=== PATIENT | female | born 1955 | race Caucasian/White ===

== ENCOUNTER 2021-05-11 08:40 | Outpatient (REF) | payer MEDICARE, SELFPAY ==
[2021-05-11 11:35] LABS: Appearance Urine CLEAR; Color Urine YELLOW; Glucose Urine UA NEG (NEG); Leukocyte Esterase Urine TRACE (NEG); Nitrite Urine NEG (NEG); Specific Gravity - Urine 1.025 (1.005-1.025); Urine Blood NEG (NEG); Urine Ketones NEG (NEG); Urine Protein NEG (NEG-TRACE)
[2021-05-11 11:46] LABS: Bacteria Urine 2+ /LPF; Hematocrit 46.7 % (37.0-47.0); Hemoglobin 15.1 g/dl (12.0-16.0); Mean Corpuscular HGB Conc 32.3 g/dl (31.0-35.0); Mean Corpuscular Hemoglobin 29.8 pg (27.0-33.0); Mean Corpuscular Volume 92.1 fL (80.0-98.0); Mean Platelet Volume 9.6 fL (9.4-12.3); Platelet Count 291 X10*3/uL (160-400); RBC Urine 0-2 /HPF (0); Red Blood Count 5.07 X10*6/uL (4.20-5.50); Squamous Epithelial Cell Urine 1+ /LPF; White Blood Count 9.2 X10*3/uL (4.8-10.8)
[2021-05-11 12:11] LABS: Alanine Aminotransferase 22 U/L (0-31); Albumin Level 4.7 g/dL (3.5-5.0); Alkaline Phosphatase 95 U/L (39-117); Anion Gap 13 (12-20); Aspartate Amino Transferase 21 U/L (5-31); Bilirubin Total 0.3 mg/dL (0.0-1.0); Blood Urea Nitrogen 27 mg/dL (9-16); Calcium 10.4 mg/dL (8.4-10.2); Carbon Dioxide 27 mmol/L (22-29); Chloride 109 mmol/L (96-108); Cholesterol 243 mg/dL; Estimated Glomerular Filt Rate > 60; Glucose Fasting 98 mg/dL (60-99); HDL Cholesterol 51 mg/dL; LDL Cholesterol Calculated 173 mg/dl; Potassium 4.1 mmol/L (3.3-5.1); Sodium 145 mmol/L (135-145); Total Protein 7.3 g/dL (6.5-8.0); Triglycerides 96 mg/dL
[2021-05-11 12:15] LABS: TSH reflex Free T4 3.18 uIU/mL (0.32-4.0)
== END 2021-05-11 08:41 | disposition home or self-care (01) ==
LOC: HO.HMGCLDS 08:40
PROVIDERS: PCP Internal Medicine; Visit Provider Internal Medicine
DX: Z00.00 Encounter for general adult medical examination without abnormal findings (principal); E03.9 Hypothyroidism, unspecified
CPT/HCPCS: 36415; 80053; 80061; 81001; 82306; 84443; 85027

== ENCOUNTER 2021-11-10 09:34 | Outpatient (REF) | payer MEDICARE, SELFPAY ==
[2021-11-10 12:06] LABS: Cholesterol 241 mg/dL; HDL Cholesterol 47 mg/dL; LDL Cholesterol Calculated 173 mg/dl; Triglycerides 109 mg/dL
[2021-11-10 12:09] LABS: TSH reflex Free T4 0.75 uIU/mL (0.32-4.0)
== END 2021-11-10 09:35 | disposition home or self-care (01) ==
LOC: HO.HMGCLDS 09:34
PROVIDERS: PCP Internal Medicine; Visit Provider Internal Medicine
DX: E78.5 Hyperlipidemia, unspecified (principal)
CPT/HCPCS: 36415; 80061; 84443

== ENCOUNTER 2022-10-31 07:51 | Outpatient (REF) | payer MEDICARE, SELFPAY ==
[2022-10-31 11:15] LABS: MANUAL DIFF FLAG NO
[2022-10-31 11:29] LABS: Basophils Absolute Auto 0.1 X10*3/uL (0.0-0.2); Eosinophils Absolute Auto 0.2 X10*3/uL (0.0-0.4); Eosinophils Percent Auto 2.5 % (0-4); Hematocrit 44.5 % (37.0-47.0); Hemoglobin 14.6 g/dl (12.0-16.0); Imm Gran Abs Auto 0.04 X10*3/uL (0.00-0.03); Imm Gran Pct Auto 0.6 % (0.0-0.4); Lymphocytes Absolute Auto 2.2 X10*3/uL (1.2-4.9); Lymphocytes Percent Auto 30.9 % (20-40); Mean Corpuscular HGB Conc 32.8 g/dl (31.0-35.0); Mean Corpuscular Hemoglobin 30.4 pg (27.0-33.0); Mean Corpuscular Volume 92.5 fL (80.0-98.0); Mean Platelet Volume 9.5 fL (9.4-12.3); Monocytes Absolute Auto 0.6 X10*3/uL (0.1-1.2); Monocytes Percent Auto 8.5 % (2-11); Neutrophils Absolute Auto 4.1 x10*3/uL (2.0-8.3); Neutrophils Percent Auto 56.5 % (45-73); Platelet Count 301 X10*3/uL (160-400); Red Blood Count 4.81 X10*6/uL (4.20-5.50); Red Cell Distribution Width 13.9 % (11.0-16.0); White Blood Count 7.2 X10*3/uL (4.8-10.8)
[2022-10-31 12:29] LABS: Alanine Aminotransferase 12 U/L (0-31); Albumin Level 4.3 g/dL (3.5-5.0); Alkaline Phosphatase 90 U/L (39-117); Anion Gap 12 (12-20); Aspartate Amino Transferase 15 U/L (5-31); Bilirubin Total 0.3 mg/dL (0.0-1.0); Blood Urea Nitrogen 23 mg/dL (9-16); Calcium 9.9 mg/dL (8.4-10.2); Carbon Dioxide 27 mmol/L (22-29); Chloride 107 mmol/L (96-108); Cholesterol 224 mg/dL (<200); Estimated Glomerular Filt Rate > 60; Glucose Fasting 94 mg/dL (60-99); HDL Cholesterol 47 mg/dL (>40); LDL Cholesterol Calculated 159 mg/dL (<100); Potassium 4.2 mmol/L (3.3-5.1); Sodium 142 mmol/L (135-145); Triglycerides 94 mg/dL (<150)
[2022-10-31 12:30] LABS: TSH reflex Free T4 1.22 uIU/mL (0.32-4.0); Vitamin D 25-OH Total 83.5 ng/mL (>30)
== END 2022-10-31 07:52 | disposition home or self-care (01) ==
LOC: HO.HMGCLDS 07:51
PROVIDERS: PCP Internal Medicine; Visit Provider Internal Medicine
DX: E55.9 Vitamin D deficiency, unspecified (principal); E03.9 Hypothyroidism, unspecified; E78.5 Hyperlipidemia, unspecified; F17.200 Nicotine dependence, unspecified, uncomplicated
CPT/HCPCS: 36415; 80053; 80061; 82306; 84443; 85025

== ENCOUNTER 2022-11-07 08:35 | Outpatient (AMB) | payer MEDICARE, SELFPAY ==
[2022-11-07 08:42] VITALS: BP 142/82; PULSE 87; O2SAT 98; BMI 26.7
--- NOTE | 2022-11-07 08:42 | MHC.PC.OV ---
Vital Signs 11/07/22 08:42 Height 5 ft 11.5 in Weight 194 lb BMI 26.7 BP 142/82 H Blood Pressure Location Lt brachial Position Sitting Pulse 87 Pulse Source Pulse Oximeter Pulse Oximetry (%) 98 Oxygen Delivery Method Room Air Intake Visit Reasons: 6m follow up hyperlipidemia,hypothyroidism Intake Note: Pt is here today for 6 months follow up visit. Allergies adhesive tape Adverse Reaction (Verified 11/07/22 08:44) Rash Medication List - Last Reconciled 11/07/22 by Taylor Mancilla MD levothyroxine 1 tab daily x6 days, 2 tabs on Monday mometasone 50 mcg/actuation 2 sprays intranasal DAILY PRN Tobacco use date assessed: 11/07/22 Dental Screening Dental Screen Date: 11/07/22 Did you have a dental visit in the last 12 months?: Yes Did you have a dental problem in the last 6 months where you did not have access to dental care?: No Was dental information given to patient?: Patient has dentist HPI 6m follow up hyperlipidemia,hypothyroidism HPI Details Pt presents for hyperlipid, hypothyroid, stable on current medications. [facility] Medical History (Updated 11/07/22 @ 11:20 by Taylor Mancilla MD) Hyperlipidemia Annual physical exam Normal breast exam Hypothyroidism (~05/16/21) Surgical History Hx of unilateral oophorectomy H/O thyroidectomy Hx of colonoscopy Family History Mother CHF (congestive heart failure) Social History Household Members Other:: , no children, Housing: House Patient Tobacco Use Status: Current everyday Tobacco user Cigarettes Per Day: 13 e-Cigarette/Vaping Use: Never Used service: No Current occupational status: retired Cognitive needs: No Hearing needs: No Vision needs: Yes Questionnaire Thrive Questionnaire Date Thrive assessed: 05/11/22 MIR-7 AMB Questionnaire MIR-7 Date MIR - 7 assessed: 05/11/22 Source: Developed by Drs. Severo Rodriguez, Vilma Yeung, Huseyin Hassan and colleagues, with an educational castillo from [employer]. Review of Systems Const All systems reviewed & are unremarkable except as noted in HPI and below Reports no additional complaints Eyes Reports no additional complaints ENT Reports no additional complaints Card Reports no additional complaints Resp Reports no additional complaints GI Reports no additional complaints Reports no additional complaints Physical exam (Primary Care) Vital Signs: Last Vital Signs Pulse 87 11/07/22 08:42 BP 142/82 H 11/07/22 08:42 Pulse Ox 98 11/07/22 08:42 Oxygen Delivery Method Room Air 11/07/22 08:42 BMI result Body Mass Index 26.7 Tobacco/Smoking Status: Tobacco use Status Tobacco use date assessed 11/07/22 11/07/22 08:49 Patient Tobacco Use Status Current everyday Tobacco 11/07/22 08:42 e-Cigarette/Vaping Use Never Used 11/07/22 08:42 Thrive Assessment: Date of Thrive Assessment Date Thrive assessed 05/11/22 11/07/22 08:42 Const General: no acute distress HENMT Head: Yes normal to inspection Mouth: Normal oral and palatal mucosa present Throat: Yes posterior oropharynx normal Eyes General: appearance normal, both eyes and all related structures Neck Neck: Yes supple Resp Effort & Inspection: normal respiratory effort Auscultation: clear to auscultation bilaterally Cardio Rhythm: regular rhythm Heart sounds: S1 normal heart sound present and S2 normal heart sound present GI Inspection: Yes normal to inspection Assessment and Plan Assessment & Plan (1) HTN (hypertension): Code(s): I10 - Essential (primary) hypertension Plan: Start 5 mg of olmesartan, low-sodium diet regular exercise and weight loss discussed with the patient (2) Tobacco dependence: Comment: 1/2 PPD for 20+ yrs, Not interested in quitting Code(s): F17.200 - Nicotine dependence, unspecified, uncomplicated (3) Hyperlipidemia: Comment: Patient declined taking statins, diet controlled Code(s): E78.5 - Hyperlipidemia, unspecified (4) Hypothyroidism: Onset Date: ~05/16/21 Code(s): E03.9 - Hypothyroidism, unspecified Plan: Continue levothyroxine Orders: Orders Basic Metabolic Panel 2 Weeks I10 - Essential (primary) hypertension Medications: New olmesartan 5 mg PO DAILY 30 tabs 2RF nabumetone 750 mg PO BID 30 tabs 0RF baclofen 10 mg PO BEDTIME 20 tabs 0RF Coding Level of Care Code Est Pt Level 4 (68530) Diagnoses HTN (hypertension) I10 Tobacco dependence F17.200 Hyperlipidemia E78.5 Hypothyroidism E03.9
== END 2022-11-07 11:19 | disposition home or self-care (01) ==
PROVIDERS: Visit Provider Internal Medicine
DX: I10 Essential (primary) hypertension (principal); F17.200 Nicotine dependence, unspecified, uncomplicated; E78.5 Hyperlipidemia, unspecified; E03.9 Hypothyroidism, unspecified
CPT/HCPCS: 99214

== ENCOUNTER 2022-11-23 13:17 | Outpatient (REF) | payer MEDICARE, SELFPAY ==
[2022-11-23 17:21] LABS: Anion Gap 16 (12-20); Blood Urea Nitrogen 30 mg/dL (9-16); Calcium 10.2 mg/dL (8.4-10.2); Carbon Dioxide 22 mmol/L (22-29); Chloride 107 mmol/L (96-108); Estimated Glomerular Filt Rate > 60; Glucose Random 103 mg/dL (60-115); Potassium 4.1 mmol/L (3.3-5.1); Sodium 141 mmol/L (135-145)
== END 2022-11-23 13:18 | disposition home or self-care (01) ==
LOC: HO.HMGCLDS 13:17
PROVIDERS: PCP Internal Medicine; Visit Provider Internal Medicine
DX: I10 Essential (primary) hypertension (principal)
CPT/HCPCS: 36415; 80048

== ENCOUNTER 2022-12-19 08:38 | Outpatient (AMB) | payer MEDICARE, SELFPAY ==
--- NOTE | 2022-12-19 08:40 | A.OFFPC_ITS ---
Vital Signs 12/19/22 08:42 Height 5 ft 11.5 in Weight 191 lb BMI 26.3 BP 146/82 H Blood Pressure Location Lt brachial Position Sitting Pulse 80 Pulse Source Pulse Oximeter Pulse Oximetry (%) 97 Oxygen Delivery Method Room Air Intake Visit Reasons: 6 week follow up Intake Note: Pt is here today for 6 weeks follow up visit. Allergies adhesive tape Adverse Reaction (Verified 12/19/22 08:45) Rash olmesartan Adverse Reaction (Verified 12/19/22 09:07) Stomach Upset Medication List - Last Reconciled 12/19/22 by Taylor Mancilla MD azithromycin 250 mg PO DAILY 6 days baclofen 10 mg PO BEDTIME levothyroxine 1 tab daily x6 days, 2 tabs on Monday mometasone 50 mcg/actuation 2 sprays intranasal DAILY PRN nabumetone 750 mg PO BID olmesartan 5 mg PO DAILY Tobacco use date assessed: 11/07/22 HPI 6 week follow up HPI Details Pt c/o nasal congestion and green discharge, facial pain, for 1 week. Patient reports epigastric discomfort since started taking olmesartan. She denies nausea vomiting constipation diarrhea hematochezia melena fever or chills. Patient read on Internet that olmesartan was recalled in the past and it can cause kidney failure. [facility] Medical History Hyperlipidemia Annual physical exam Normal breast exam Hypothyroidism (~05/16/21) Surgical History Hx of unilateral oophorectomy H/O thyroidectomy Hx of colonoscopy Family History Mother CHF (congestive heart failure) Social History Household Members Other:: , no children, Housing: House Patient Tobacco Use Status: Current everyday Tobacco user Cigarettes Per Day: 13 e-Cigarette/Vaping Use: Never Used service: No Current occupational status: retired Cognitive needs: No Hearing needs: No Vision needs: Yes Questionnaire Thrive Questionnaire Date Thrive assessed: 05/11/22 MIR-7 AMB Questionnaire IMR-7 Date MIR - 7 assessed: 05/11/22 Source: Developed by Drs. Severo Rodriguez, Vilma Yeung, Huseyin Hassan and colleagues, with an educational castillo from [employer]. Review of Systems Const All systems reviewed & are unremarkable except as noted in HPI and below Reports no additional complaints Eyes Reports no additional complaints ENT Reports no additional complaints Card Reports no additional complaints Resp Reports no additional complaints GI Reports no additional complaints Reports no additional complaints Physical exam (Primary Care) Vital Signs: Last Vital Signs Pulse 80 12/19/22 08:42 BP 146/82 H 12/19/22 08:42 Pulse Ox 97 12/19/22 08:42 Oxygen Delivery Method Room Air 12/19/22 08:42 BMI result Body Mass Index 26.3 Tobacco/Smoking Status: Tobacco use Status Tobacco use date assessed 11/07/22 12/19/22 08:40 Patient Tobacco Use Status Current everyday Tobacco 12/19/22 08:40 e-Cigarette/Vaping Use Never Used 12/19/22 08:40 Thrive Assessment: Date of Thrive Assessment Date Thrive assessed 05/11/22 12/19/22 08:40 Const General: no acute distress HENMT Head: Yes normal to inspection Ears: TM's normal bilaterally General nose exam: Abnormal mucous membranes and turbinates present erythematous and Nasal discharge present purulent Face and sinus: Yes sinus tenderness Throat: Yes posterior oropharynx normal Eyes General: appearance normal, both eyes and all related structures Neck Neck: Yes no lymphadenopathy and Yes supple Resp Effort & Inspection: normal respiratory effort Auscultation: clear to auscultation bilaterally Cardio Rhythm: regular rhythm Heart sounds: S1 normal heart sound present and S2 normal heart sound present GI Inspection: Yes normal to inspection Assessment and Plan Assessment & Plan (1) HTN (hypertension): Comment: Longstanding, ?white coat, Olmesartan caused stomach upset Code(s): I10 - Essential (primary) hypertension Plan: Change olmesartan to amlodipine 2.5 mg a day. Low-sodium diet regular physical activity discussed with the patient. Follow-up in 2 months for blood pressure check (2) Hyperlipidemia: Comment: Patient declined taking statins, diet controlled Code(s): E78.5 - Hyperlipidemia, unspecified Plan: Continue low-cholesterol diet (3) Sinusitis: Code(s): J32.9 - Chronic sinusitis, unspecified Plan: Z-Wero is prescribed and supportive care discussed with the patient Medications: New azithromycin start on day 2 of therapy 250 mg PO DAILY 6 days 6 tabs 0RF amlodipine 2.5 mg PO DAILY 30 tabs 2RF Discontinued olmesartan Discontinued Reason: Doctor's Order 5 mg PO DAILY 30 tabs 2RF Coding Level of Care Code Est Pt Level 4 (57963) Diagnoses HTN (hypertension) I10 Hyperlipidemia E78.5 Sinusitis J32.9
[2022-12-19 08:42] VITALS: BP 146/82; PULSE 80; O2SAT 97; BMI 26.3
== END 2022-12-19 09:21 | disposition home or self-care (01) ==
PROVIDERS: PCP Internal Medicine; Visit Provider Internal Medicine
DX: I10 Essential (primary) hypertension (principal); E78.5 Hyperlipidemia, unspecified; J32.9 Chronic sinusitis, unspecified
CPT/HCPCS: 99214

== ENCOUNTER 2023-02-20 10:08 | Outpatient (AMB) | payer MEDICARE, SELFPAY ==
[2023-02-20 10:29] VITALS: BP 144/78; PULSE 92; O2SAT 97; BMI 26.3
--- NOTE | 2023-02-20 10:29 | MHC.PC.OV ---
Vital Signs 02/20/23 10:29 Height 5 ft 11.5 in Weight 191 lb BMI 26.3 BP 144/78 H Blood Pressure Location Lt brachial Position Sitting Pulse 92 Pulse Source Pulse Oximeter Pulse Oximetry (%) 97 Oxygen Delivery Method Room Air Intake Visit Reasons: 2 Month follow up Intake Note: Pt is here today for 2 months follow up visit. Allergies adhesive tape Adverse Reaction (Verified 02/20/23 10:30) Rash olmesartan Adverse Reaction (Verified 02/20/23 10:30) Stomach Upset Medication List - Last Reconciled 02/20/23 by Taylor Mancilla MD amlodipine 2.5 mg PO DAILY levothyroxine 1 tab daily x6 days, 2 tabs on Monday mometasone 50 mcg/actuation 2 sprays intranasal DAILY PRN Tobacco use date assessed: 02/20/23 Fall risk assessment: No Falls in past year Last assessed Fall Risk: 02/20/23 Dental Screening Dental Screen Date: 02/20/23 Did you have a dental visit in the last 12 months?: Yes Did you have a dental problem in the last 6 months where you did not have access to dental care?: No Was dental information given to patient?: Patient has dentist HPI 2 Month follow up HPI Details Pt presents for f/u HTN, tolerating Amlodipine. Patient has been following low-cholesterol diet for hyperlipidemia. [facility] Medical History Hyperlipidemia Annual physical exam Normal breast exam Hypothyroidism (~05/16/21) Surgical History Hx of unilateral oophorectomy H/O thyroidectomy Hx of colonoscopy Family History Mother CHF (congestive heart failure) Social History Household Members Other:: , no children, Housing: House Patient Tobacco Use Status: Current everyday Tobacco user Cigarettes Per Day: 13 e-Cigarette/Vaping Use: Never Used service: No Current occupational status: retired Cognitive needs: No Hearing needs: No Vision needs: Yes Questionnaire Thrive Questionnaire Date Thrive assessed: 05/11/22 AUDIT C Alcohol Use Questionnaire (AUDIT-C) 1. How often do you have a drink containing alcohol?: Monthly or less 2. How many drinks containing alcohol do you have on a typical day when you are drinking?: 1 or 2 3. How often do you have six or more drinks on one occasion?: Never Total Score: 1 MIR-7 AMB Questionnaire MIR-7 Date MIR - 7 assessed: 05/11/22 Source: Developed by Drs. Severo Rodriguez, Vilma Yeung, Huseyin Hassan and colleagues, with an educational castillo from [employer]. Review of Systems Const All systems reviewed & are unremarkable except as noted in HPI and below Reports no additional complaints Eyes Reports no additional complaints ENT Reports no additional complaints Card Reports no additional complaints Resp Reports no additional complaints GI Reports no additional complaints Reports no additional complaints Physical exam (Primary Care) Vital Signs: Last Vital Signs Pulse 92 02/20/23 10:29 BP 144/78 H 02/20/23 10:29 Pulse Ox 97 02/20/23 10:29 Oxygen Delivery Method Room Air 02/20/23 10:29 BMI result Body Mass Index 26.3 Tobacco/Smoking Status: Tobacco use Status Tobacco use date assessed 02/20/23 02/20/23 10:36 Patient Tobacco Use Status Current everyday Tobacco 02/20/23 10:36 e-Cigarette/Vaping Use Never Used 02/20/23 10:29 Thrive Assessment: Date of Thrive Assessment Date Thrive assessed 05/11/22 02/20/23 10:29 Const General: no acute distress HENMT Head: Yes normal to inspection Ears: hearing grossly normal bilaterally Neck Neck: Yes supple Resp Effort & Inspection: normal respiratory effort Auscultation: clear to auscultation bilaterally Cardio Rhythm: regular rhythm Heart sounds: S1 normal heart sound present and S2 normal heart sound present GI Inspection: Yes normal to inspection Palpation (GI): Soft to palpation Percussion: Yes normal to percussion Auscultation: normal bowel sounds Assessment and Plan Assessment & Plan (1) HTN (hypertension): Comment: Longstanding, ?white coat, Olmesartan caused stomach upset Code(s): I10 - Essential (primary) hypertension Plan: Continue Amlodipine (2) Hyperlipidemia: Comment: Patient declined taking statins, diet controlled Code(s): E78.5 - Hyperlipidemia, unspecified Plan: Low-cholesterol diet increase physical activity fish oil supplement discussed with the patient (3) Hypothyroidism: Onset Date: ~05/16/21 Code(s): E03.9 - Hypothyroidism, unspecified Plan: Continue levothyroxine Orders: Orders Comprehensive [place]. Panel Fast 3 Months E03.9 - Hypothyroidism, unspecified, E78.5 - Hyperlipidemia, unspecified, I10 - Essential (primary) hypertension TSH reflex Free T4 3 Months E03.9 - Hypothyroidism, unspecified, E78.5 - Hyperlipidemia, unspecified, I10 - Essential (primary) hypertension Complete Blood Count Auto Diff 3 Months E03.9 - Hypothyroidism, unspecified, E78.5 - Hyperlipidemia, unspecified, I10 - Essential (primary) hypertension Lipid Panel 3 Months E03.9 - Hypothyroidism, unspecified, E78.5 - Hyperlipidemia, unspecified, I10 - Essential (primary) hypertension Coding Level of Care Code Est Pt Level 4 (43763) Diagnoses HTN (hypertension) I10 Hyperlipidemia E78.5 Hypothyroidism E03.9
== END 2023-02-20 11:24 | disposition home or self-care (01) ==
PROVIDERS: PCP Internal Medicine; Visit Provider Internal Medicine
DX: I10 Essential (primary) hypertension (principal); E78.5 Hyperlipidemia, unspecified; E03.9 Hypothyroidism, unspecified
CPT/HCPCS: 99214

== ENCOUNTER 2023-04-14 10:55 | Outpatient (AMB) | payer MEDICARE, SELFPAY ==
[2023-04-14 12:19] VITALS: BP 140/80; PULSE 85; TEMP 36.4; O2SAT 98; BMI 26.3
--- NOTE | 2023-04-14 12:19 | AM.OFFWIN_ITS ---
Intake Vital Signs 04/14/23 12:19 Height 5 ft 11.5 in Weight 191 lb BMI 26.3 BP 140/80 H Blood Pressure Location Lt brachial Position Sitting Pulse 85 Pulse Source Pulse Oximeter Temp 97.6 F Temp Source Temporal Artery Scan Pulse Oximetry (%) 98 Oxygen Delivery Method Room Air Intake Visit Reasons: EST/vertigo since monday (lobby) Intake Note: pt is here today for vertigo started monday Patient Tobacco Use Status: Current everyday Tobacco user Allergies adhesive tape Adverse Reaction (Verified 04/14/23 12:20) Rash olmesartan Adverse Reaction (Verified 04/14/23 12:20) Stomach Upset Do you need a note to return to daycare/school/sports/work: No HPI HPI Comments History of Present Illness Details 68 y/o female who presents to walk in [facility] with c/o Vertigo since Monday. [facility] Medical History Hyperlipidemia Annual physical exam Normal breast exam Hypothyroidism (~05/16/21) Surgical History Hx of unilateral oophorectomy H/O thyroidectomy Hx of colonoscopy Family History Mother CHF (congestive heart failure) Social History Household Members Other:: , no children, Housing: House Patient Tobacco Use Status: Current everyday Tobacco user Cigarettes Per Day: 13 e-Cigarette/Vaping Use: Never Used service: No Current occupational status: retired Cognitive needs: No Hearing needs: No Vision needs: Yes Review of Systems Const All systems reviewed & are unremarkable except as noted in HPI and below Physical Exam Vital Signs: Last Vital Signs Temp 97.6 F 04/14/23 12:19 Pulse 85 04/14/23 12:19 BP 140/80 H 04/14/23 12:19 Pulse Ox 98 04/14/23 12:19 Oxygen Delivery Method Room Air 04/14/23 12:19 BMI result Body Mass Index 26.3 Const General: no acute distress Orientation/consciousness: patient oriented x3 Limitations: ambulation with cane HEENT Head: Yes normocephalic Ears: external ears normal and TM's normal bilaterally (Small amount of fluid right ear) General nose exam: Abnormal mucous membranes and turbinates present boggy and erythematous Face and sinus: Yes sinuses nontender Mouth: moist mucous membranes Throat: Yes posterior oropharynx normal Resp Effort & Inspection: normal respiratory effort and able to speak in complete sentences Auscultation: clear to auscultation bilaterally Cardio Rate: regular rate Rhythm: regular rhythm Neuro General: patient oriented x3 Psych Speech and movement: Clear speech present Assessment & Plan Assessment & Plan (1) Dizziness: Code(s): R42 - Dizziness and giddiness Plan: - Take medicine as directed - F/U with PCP Medications: New meclizine 50 mg PO BID 60 tabs 0RF R42 - Dizziness and giddiness prednisone 20 mg PO DAILY 5 days 5 tabs 0RF R42 - Dizziness and giddiness Coding Level of Care Code Est Pt Level 3 (09056) Diagnoses Dizziness R42 Time Spent (min) 15
== END 2023-04-14 16:20 | disposition home or self-care (01) ==
PROVIDERS: PCP Internal Medicine; Visit Provider Nurse Practitioner Family
DX: R42 Dizziness and giddiness (principal)
CPT/HCPCS: 99213

== ENCOUNTER 2023-04-21 11:24 | Outpatient (AMB) | payer MEDICARE, SELFPAY ==
--- NOTE | 2023-04-21 11:31 | A.OFFPC_ITS ---
Vital Signs 04/21/23 11:32 Height 5 ft 11.5 in Weight 194 lb 4 oz BMI 26.7 BP 160/74 H Blood Pressure Location Lt brachial Position Sitting Pulse 96 Pulse Source Pulse Oximeter Pulse Oximetry (%) 100 Oxygen Delivery Method Room Air Intake Visit Reasons: Followup dizziness, ok per Dr Small Intake Note: Pt is here to follow up at being seen at the walk-in for dizziness and nausea and says she has sinus pressure behind her nose and ears plugged Allergies adhesive tape Adverse Reaction (Verified 04/21/23 12:27) Rash olmesartan Adverse Reaction (Verified 04/21/23 12:27) Stomach Upset Medication List - Last Reconciled 04/21/23 by PONCE Araiza amlodipine 2.5 mg PO DAILY amoxicillin-pot clavulanate 875-125 mg 1 tab PO Q12H cholecalciferol (vitamin D3) 50 mcg PO DAILY levothyroxine 1 tab daily x6 days, 2 tabs on Monday meclizine 50 mg PO BID mometasone 50 mcg/actuation 2 sprays intranasal DAILY PRN Tobacco use date assessed: 04/21/23 Fall risk assessment: No Falls in past year Last assessed Fall Risk: 04/21/23 HPI HPI Comments History of Present Illness Details Patient is a 68-year-old female in for a sick visit. Patient was recently seen in the walk-in clinic 7 days prior for symptoms of persistent dizziness. Patient was given prednisone and meclizine. She states that the medication helped for 2-3 days, and that the symptoms have returned. At today's appointment she states she feels pressure in her sinuses hand feels discomfort in the right side of her face into her ear. Patient has a distant history of BP PV. Patient denies vomiting, chest pain, shortness a breath, numbness, vomiting, diarrhea. The patient's blood pressure today is elevated at 160/74. She has history of white coat syndrome, this is elevated above previous in office measurements. Patient is currently taking 2.5 mg amlodipine. Patient will be recommended to take 5 mg amlodipine to continue measuring her blood pressure at home. Patient denied in office BP check in 1 week, states she would like to monitor at home and follow-up with her PCP in 1 month On physical exam the patient is positive on Dottie-Hallpike maneuver. She also has otitis media with effusion of the right ear. Patient will be instructed to continue meclizine, will be given course of Augmentin to be taken as directed. Patient is declining vestibular physical therapy at this time. Patient will follow-up with primary care provider if symptoms do not subside. [facility] Medical History Hyperlipidemia Annual physical exam Normal breast exam Hypothyroidism (~05/16/21) Surgical History Hx of unilateral oophorectomy H/O thyroidectomy Hx of colonoscopy Family History Mother CHF (congestive heart failure) Social History Household Members Other:: , no children, Housing: House Patient Tobacco Use Status: Current everyday Tobacco user Cigarettes Per Day: 13 e-Cigarette/Vaping Use: Never Used service: No Current occupational status: retired Cognitive needs: No Hearing needs: No Vision needs: Yes Questionnaire Thrive Questionnaire Date Thrive assessed: 05/11/22 MIR-7 AMB Questionnaire MIR-7 Date MIR - 7 assessed: 05/11/22 Source: Developed by Drs. Severo Rodriguez, Vilma Yeung, Huseyin Hassan and colleagues, with an educational castillo from [employer]. Review of Systems Const Details: Constitutional : No Weight loss, No fever, Admits Chills, No Fatigue, No Malaise ENT/Mouth : No sore throat, Admits sinus tenderness, Admits right ear pain. Eyes: No Eye Pain, No Swelling, No Redness Cardiovascular : No Chest Pain, No SOB, No Dyspnea on Exertion, No Orthopnea, No Edema, No Palpitations Respiratory : No Cough, No Sputum, No Wheezing Gastrointestinal : No Nausea, No Vomiting, No Diarrhea, No Constipation, No abdominal Pain, No Hematochezia, No Melena Neuro : No Weakness, No Numbness, Admits Dizziness, No Headache All other systems reviewed and are negative Physical exam (Primary Care) Vital Signs: Last Vital Signs Pulse 96 04/21/23 11:32 BP 160/74 H 04/21/23 11:32 Pulse Ox 100 04/21/23 11:32 Oxygen Delivery Method Room Air 04/21/23 11:32 Care Plan Goal for BP management: Patient will take 5 mg amlodipine up from 2.5 mg. Patient will take blood pressure measurements at home. Patient will go back down to 2.5 mg of blood pressures found to be low at home. Next steps: Declined in office BP check in 1 week. BMI result Body Mass Index 26.7 Tobacco/Smoking Status: Tobacco use Status Tobacco use date assessed 04/21/23 04/21/23 11:41 Patient Tobacco Use Status Current everyday Tobacco 04/21/23 11:31 e-Cigarette/Vaping Use Never Used 04/21/23 11:31 Thrive Assessment: Date of Thrive Assessment Date Thrive assessed 05/11/22 04/21/23 11:31 Const Other: Appearance: Alert.? Oriented X3.? No acute distress.? Head: Normocephalic, atraumatic, Eyes: Pupils equal, round and reactive to light.? ENT: Pharynx normal. Left TM intact and pearly lay. Right TM intact with effusion and erythema. ? Neck: Normal inspection.? Neck supple.?Full ROM. CVS: Normal heart rate and rhythm.? Pulses normal.? Respiratory: No respiratory distress.? Breath sounds normal.? Skin: Skin warm and dry.? Normal skin color.? Normal skin turgor.? Neuro: Oriented X 3.? No motor deficit.?EOMI, No sensory deficit. CN 2-12 intact. 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 + Dottie-Hallpike maneuver. Assessment and Plan Assessment & Plan (1) Otitis media of right ear: Comment: Patient will be given Augmentin to be taken as directed. Patient has been educated the side effects of these medications. Code(s): H66.91 - Otitis media, unspecified, right ear Qualifiers: Otitis media type: unspecified Qualified Code(s): H66.91 - Otitis media, unspecified, right ear Plan: Take your medications as prescribed. If you were prescribed antibiotics today, it is important that you take your medication to their entirety, do not skip any doses, do not finish them early. Follow-up with your primary care provider this week. Return to the emergency department with new or worsening symptoms. Such as fevers, chills, chest pain, shortness of breath, nausea, vomiting, dizziness, headache, vision changes, lethargy In case of emergency call 911 (2) HTN (hypertension): Comment: Patient will go from 2.5 mg to 5 mg amlodipine at home. Patient will take blood pressure measurements at home. She does have history of white coat syndrome, also just finished course of prednisone. If blood pressure measurements are low at home patient is instructed to go back to 2.5 mg. Patient states understanding. Code(s): I10 - Essential (primary) hypertension Qualifiers: Hypertension type: unspecified Qualified Code(s): I10 - Essential (primary) hypertension Plan: Patient would like to follow-up with PCP in 1 month. (3) Vertigo: Comment: Positive Dottie-Hallpike maneuver. Patient to take meclizine as directed for symptom relief. Patient has been educated that long-term relief often comes from physical therapy, patient has denied this at this time. Code(s): R42 - Dizziness and giddiness Medications: New amoxicillin-pot clavulanate 875-125 mg 1 tab PO Q12H 14 tabs 0RF Patient Instructions: Follow-up with PCP. Coding Level of Care Code Est Pt Level 3 (55700) Diagnoses Right otitis media, unspecified otitis media type H66.91 Otitis media type: unspecified Hypertension, unspecified type I10 Hypertension type: unspecified Vertigo R42 Time Spent (min) 30
[2023-04-21 11:32] VITALS: BP 160/74; PULSE 96; O2SAT 100; BMI 26.7
== END 2023-04-21 13:06 | disposition home or self-care (01) ==
PROVIDERS: PCP Internal Medicine; Visit Provider Nurse Practitioner Primary Care
DX: H66.91 Otitis media, unspecified, right ear (principal); I10 Essential (primary) hypertension; R42 Dizziness and giddiness
CPT/HCPCS: 99213

== ENCOUNTER 2023-05-12 08:03 | Outpatient (REF) | payer MEDICARE, SELFPAY ==
[2023-05-12 10:41] LABS: MANUAL DIFF FLAG NO
[2023-05-12 10:54] LABS: Basophils Absolute Auto 0.1 X10*3/uL (0.0-0.2); Basophils Percent Auto 0.7 % (0-2); Eosinophils Absolute Auto 0.2 X10*3/uL (0.0-0.4); Eosinophils Percent Auto 1.3 % (0-4); Hematocrit 42.8 % (37.0-47.0); Hemoglobin 14.1 g/dl (12.0-16.0); Imm Gran Abs Auto 0.16 X10*3/uL (0.00-0.03); Imm Gran Pct Auto 1.3 % (0.0-0.4); Lymphocytes Absolute Auto 4.6 X10*3/uL (1.2-4.9); Lymphocytes Percent Auto 38.4 % (20-40); Mean Corpuscular HGB Conc 32.9 g/dl (31.0-35.0); Mean Corpuscular Hemoglobin 29.3 pg (27.0-33.0); Mean Corpuscular Volume 88.8 fL (80.0-98.0); Mean Platelet Volume 9.1 fL (9.4-12.3); Neutrophils Absolute Auto 6.1 x10*3/uL (2.0-8.3); Neutrophils Percent Auto 50.3 % (45-73); Platelet Count 352 X10*3/uL (160-400); Red Blood Count 4.82 X10*6/uL (4.20-5.50); Red Cell Distribution Width 14.2 % (11.0-16.0)
[2023-05-12 11:25] LABS: Alanine Aminotransferase 12 U/L (0-31); Alkaline Phosphatase 91 U/L (39-117); Anion Gap 13 (12-20); Aspartate Amino Transferase 12 U/L (5-31); Bilirubin Total 0.3 mg/dL (0.0-1.0); Blood Urea Nitrogen 33 mg/dL (9-16); Calcium 9.6 mg/dL (8.4-10.2); Carbon Dioxide 27 mmol/L (22-29); Chloride 104 mmol/L (96-108); Cholesterol 205 mg/dL (<200); Estimated Glomerular Filt Rate > 60; Glucose Fasting 80 mg/dL (60-99); HDL Cholesterol 59 mg/dL (>40); LDL Cholesterol Calculated 132 mg/dL (<100); Potassium 3.6 mmol/L (3.3-5.1); Sodium 140 mmol/L (135-145); TSH reflex Free T4 1.98 uIU/mL (0.32-4.0); Total Protein 6.8 g/dL (6.5-8.0); Triglycerides 74 mg/dL (<150)
== END 2023-05-12 08:04 | disposition home or self-care (01) ==
LOC: HO.HMGCLDS 08:03
PROVIDERS: PCP Internal Medicine; Visit Provider Internal Medicine
DX: I10 Essential (primary) hypertension (principal); E78.5 Hyperlipidemia, unspecified; E03.9 Hypothyroidism, unspecified
CPT/HCPCS: 36415; 80053; 80061; 84443; 85025

== ENCOUNTER 2023-05-15 09:04 | Outpatient (AMB) | payer MEDICARE, SELFPAY ==
--- NOTE | 2023-05-15 09:21 | A.OFFPC_ITS ---
Vital Signs 05/15/23 09:23 Height 5 ft 11.5 in Weight 192 lb BMI 26.4 BP 138/78 Blood Pressure Location Rt brachial Position Sitting Pulse 85 Pulse Source Pulse Oximeter Pulse Oximetry (%) 98 Oxygen Delivery Method Room Air Intake Visit Reasons: Follow-up ear infection Intake Note: Pt is here today for a follow up visit on ear infection.Pt states that she is still feeling dizzy out of balance. Allergies adhesive tape Adverse Reaction (Verified 05/15/23 09:25) Rash olmesartan Adverse Reaction (Verified 05/15/23 09:25) Stomach Upset Medication List - Last Reconciled 05/15/23 by Taylor Mancilla MD amlodipine 2.5 mg PO DAILY cholecalciferol (vitamin D3) 50 mcg PO DAILY levothyroxine 1 tab daily x6 days, 2 tabs on Monday meclizine 50 mg PO BID mometasone 50 mcg/actuation 2 sprays intranasal DAILY PRN prednisone 20 mg PO DAILY Tobacco use date assessed: 04/21/23 Fall risk assessment: No Falls in past year Last assessed Fall Risk: 05/15/23 Dental Screening Dental Screen Date: 02/20/23 HPI Follow-up ear infection HPI Details Patient presents complaining of persistent vertigo and feeling of right ear blocked for 1 month. Patient was initially treated with 5 days of prednisone with only temporary relief. She was prescribed Augmentin 2 weeks ago but reports persistent positional vertigo worse when getting up in the morning. Patient denies weakness or numbness in extremities,ausea vomiting change in vision. She denies fever chills but reports nasal congestion and has been using Nasacort with saline nasal spray. Hypertension is controlled on Amlodipne. [facility] Medical History Hyperlipidemia Annual physical exam Normal breast exam Hypothyroidism (~05/16/21) Surgical History Hx of unilateral oophorectomy H/O thyroidectomy Hx of colonoscopy Family History Mother CHF (congestive heart failure) Social History Household Members Other:: , no children, Housing: House Patient Tobacco Use Status: Current everyday Tobacco user Cigarettes Per Day: 13 e-Cigarette/Vaping Use: Never Used service: No Current occupational status: retired Cognitive needs: No Hearing needs: No Vision needs: Yes Questionnaire PHQ-9 Over the last 2 weeks, how often have you been bothered by any of the following problems? 1. Little interest or pleasure in doing things: not at all 2. Feeling down, depressed, or hopeless: not at all 3. Trouble falling or staying asleep, or sleeping too much: several days 4. Feeling tired or having little energy: several days 5. Poor appetite or overeating: several days 6. Feeling bad about yourself - or that you are a failure or have let yourself or your family down: not at all 7. Trouble concentrating on things, such as reading the newspaper or watching television: not at all 8. Moving or speaking so slowly that other people could have noticed. Or the opposite - being so fidgety or restless that you have been moving around a lot more than usual: not at all 9. Thoughts that you would be better off or of hurting yourself in some way: not at all Total score: 3 Depression Screening Interpretation: Negative Depression Screening Done: Yes Source: Developed by Drs. Severo Rodriguez, Vilma Yeung, Huseyin Hassan and colleagues, with an educational castillo from [employer]. Thrive Questionnaire Date Thrive assessed: 05/15/23 I am a: Patient What is your living situation today?: I have a steady place to live Within the past 12 months, did the food you bought not last and you didn't have the money to get more?: Never true Within the past 12 months, did you worry whether your food would run out before you got money to buy more?: Never true Do you have trouble paying for medicines?: No Do you have trouble getting transportation to medical appointments?: No Do you have trouble paying your heating and electricity bill?: No Do you have trouble taking care of your child, family member or friend?: No Do you have trouble with day-to-day activities such as bathing, preparing meals, shopping, managing finances, etc.?: No Are you currently unemployed and looking for a job?: No Are you interested in more education?: No Please select the resources that you would like help with: None Currently or been in a relationship where the following occur: no concerns reported THRIVE Score: 0 MIR-7 AMB Questionnaire MIR-7 Date MIR - 7 assessed: 05/15/23 Feeling nervous, anxious, or on edge: 0 = Not at all Not being able to stop or control worryin = Not at all Worrying too much about different things: 0 = Not at all Trouble relaxin = Not at all Being so restless that it is hard to sit still: 0 = Not at all Becoming easily annoyed or irritable: 0 = Not at all Feeling afraid as if something awful might happen: 0 = Not at all Total MIR-7 score (0-4 normal; 5-9 mild; 10-14 moderate; 15-21 severe): 0 Source: Developed by Drs. Severo Rodriguez, Vilma Yeung, Huseyin Hassan and colleagues, with an educational castillo from [employer]. Review of Systems Const All systems reviewed & are unremarkable except as noted in HPI and below Reports no additional complaints Eyes Reports no additional complaints ENT Reports no additional complaints Card Reports no additional complaints Resp Reports no additional complaints GI Reports no additional complaints Physical exam (Primary Care) Vital Signs: Last Vital Signs Pulse 85 05/15/23 09:23 BP 138/78 05/15/23 09:23 Pulse Ox 98 05/15/23 09:23 Oxygen Delivery Method Room Air 05/15/23 09:23 BMI result Body Mass Index 26.4 Tobacco/Smoking Status: Tobacco use Status Tobacco use date assessed 04/21/23 05/15/23 09:28 Patient Tobacco Use Status Current everyday Tobacco 05/15/23 09:28 e-Cigarette/Vaping Use Never Used 05/15/23 09:28 PHQ-9: PHQ-9 Score PHQ-9: Total score 3 05/15/23 09:28 Depression Screening Interpretation: Negative Thrive Assessment: Date of Thrive Assessment Date Thrive assessed 05/15/23 05/15/23 09:28 Currently or been in a relationship where the following occur: no concerns reported Const General: no acute distress HENMT Head: Yes normal to inspection Ears: hearing grossly normal bilaterally and TM's normal bilaterally General nose exam: Abnormal mucous membranes and turbinates present erythematous Face and sinus: Yes normal facial exam Mouth: Normal oral and palatal mucosa present Throat: Yes posterior oropharynx normal Eyes General: appearance normal, both eyes and all related structures Neck Neck: Yes no lymphadenopathy and Yes supple Resp Effort & Inspection: normal respiratory effort Auscultation: clear to auscultation bilaterally Cardio Rhythm: regular rhythm Heart sounds: S1 normal heart sound present and S2 normal heart sound present Neuro Cranial nerves: Yes CN's II-XII intact bilaterally Gait exam (Neuro): Normal gait present Motor exam (neuro): 5/5 motor strength present throughout Coordination: [id number]-[id number] test normal Romberg Test: Negative Extrem General: Yes no clubbing, cyanosis or edema Assessment and Plan Assessment & Plan (1) Vertigo: Code(s): R42 - Dizziness and giddiness Plan: For persistent benign positional vertigo prednisone taper is prescribed. patient will be referred to vestibular therapy and will follow-up in 10 days (2) HTN (hypertension): Code(s): I10 - Essential (primary) hypertension Qualifiers: Hypertension type: unspecified Qualified Code(s): I10 - Essential (primary) hypertension Plan: Continue amlodipine Medications: New prednisone 3 tabl QD x 3 days, then 2 tabl x 3 day, 1 tabl qd x 3 days 20 mg PO DAILY 18 tabs 0RF Coding Level of Care Code Est Pt Level 3 (18873) Diagnoses Vertigo R42 Hypertension, unspecified type I10 Hypertension type: unspecified
[2023-05-15 09:23] VITALS: BP 138/78; PULSE 85; O2SAT 98; BMI 26.4
== END 2023-05-15 10:13 | disposition home or self-care (01) ==
PROVIDERS: PCP Internal Medicine; Visit Provider Internal Medicine
DX: R42 Dizziness and giddiness (principal); I10 Essential (primary) hypertension
CPT/HCPCS: 99213

== ENCOUNTER 2023-05-24 10:16 | Outpatient (AMB) | payer MEDICARE, SELFPAY ==
[2023-05-24 10:46] VITALS: BP 136/74; PULSE 95; O2SAT 97; BMI 26.4
--- NOTE | 2023-05-24 10:46 | A.OFFPC_ITS ---
Vital Signs 05/24/23 10:46 Height 5 ft 11.5 in Weight 192 lb BMI 26.4 BP 136/74 Blood Pressure Location Lt brachial Position Sitting Pulse 95 Pulse Source Pulse Oximeter Pulse Oximetry (%) 97 Oxygen Delivery Method Room Air Intake Visit Reasons: 3 month fu Intake Note: Adrienne is here today for a for a follow up visit. Allergies adhesive tape Adverse Reaction (Verified 05/24/23 10:46) Rash olmesartan Adverse Reaction (Verified 05/24/23 10:46) Stomach Upset Medication List - Last Reconciled 05/24/23 by Taylor Mancilla MD amlodipine 2.5 mg PO DAILY cholecalciferol (vitamin D3) 50 mcg PO DAILY levothyroxine 1 tab daily x6 days, 2 tabs on Monday meclizine 50 mg PO BID mometasone 50 mcg/actuation 2 sprays intranasal DAILY PRN Tobacco use date assessed: 05/24/23 Dental Screening Dental Screen Date: 02/20/23 HPI 3 month fu HPI Details Patient presents for the follow-up hypertension is controlled on amlodipine. Patient complains of persistent positional vertigo and fullness in both ears with a decreased hearing. She took a course of prednisone twice has been taking antihistamine and using Nasonex without any relief. [facility] Medical History Hyperlipidemia Annual physical exam Normal breast exam Hypothyroidism (~05/16/21) Surgical History Hx of unilateral oophorectomy H/O thyroidectomy Hx of colonoscopy Family History Mother CHF (congestive heart failure) Social History Household Members Other:: , no children, Housing: House Patient Tobacco Use Status: Current everyday Tobacco user Cigarettes Per Day: 13 e-Cigarette/Vaping Use: Never Used service: No Current occupational status: retired Cognitive needs: No Hearing needs: No Vision needs: Yes Questionnaire Thrive Questionnaire Date Thrive assessed: 05/15/23 MIR-7 AMB Questionnaire MIR-7 Date MIR - 7 assessed: 05/15/23 Source: Developed by Drs. Severo Rodriguez, Vilma Yeung, Huseyin Hassan and colleagues, with an educational castillo from [employer]. Review of Systems Const All systems reviewed & are unremarkable except as noted in HPI and below Reports no additional complaints Eyes Reports no additional complaints ENT Reports no additional complaints Card Reports no additional complaints Resp Reports no additional complaints GI Reports no additional complaints Reports no additional complaints Physical exam (Primary Care) Vital Signs: Last Vital Signs Pulse 95 05/24/23 10:46 BP 136/74 05/24/23 10:46 Pulse Ox 97 05/24/23 10:46 Oxygen Delivery Method Room Air 05/24/23 10:46 BMI result Body Mass Index 26.4 Tobacco/Smoking Status: Tobacco use Status Tobacco use date assessed 05/24/23 05/24/23 10:47 Patient Tobacco Use Status Current everyday Tobacco 05/24/23 10:47 e-Cigarette/Vaping Use Never Used 05/24/23 10:47 Thrive Assessment: Date of Thrive Assessment Date Thrive assessed 05/15/23 05/24/23 10:47 Const General: no acute distress HENMT Head: Yes normal to inspection Ears: TM's normal bilaterally and [place] (normal) General nose exam: Normal external nose present and Normal nasal mucous membranes and turbinates present Mouth: Normal oral and palatal mucosa present Eyes General: appearance normal, both eyes and all related structures Neck Neck: Yes no lymphadenopathy and Yes supple Resp Effort & Inspection: normal respiratory effort Auscultation: clear to auscultation bilaterally Cardio Rhythm: regular rhythm Heart sounds: S1 normal heart sound present and S2 normal heart sound present Neuro Cranial nerves: Yes CN's II-XII intact bilaterally Motor exam (neuro): 5/5 motor strength present throughout Coordination: [id number]-[id number] test normal Romberg Test: Negative Assessment and Plan Assessment & Plan (1) Vertigo: Code(s): R42 - Dizziness and giddiness Plan: For persistent positional vertigo with decreased hearing patient will be referred to ENT (2) Vestibulitis of ear: Code(s): H83.09 - Labyrinthitis, unspecified ear (3) Hyperlipidemia: Comment: Patient declined taking statins, diet controlled Code(s): E78.5 - Hyperlipidemia, unspecified Plan: Continue low-cholesterol diet (4) Vitamin D deficiency: Code(s): E55.9 - Vitamin D deficiency, unspecified (5) HTN (hypertension): Code(s): I10 - Essential (primary) hypertension Qualifiers: Hypertension type: unspecified Qualified Code(s): I10 - Essential (primary) hypertension Plan: Continue amlodipine Orders: Orders Comprehensive [place]. Panel Fast 6 Months E55.9 - Vitamin D deficiency, unspecified, E78.5 - Hyperlipidemia, unspecified, I10 - Essential (primary) hypertension Lipid Panel 6 Months E55.9 - Vitamin D deficiency, unspecified, E78.5 - Hyperlipidemia, unspecified, I10 - Essential (primary) hypertension Vitamin D 25-OH Total 6 Months E55.9 - Vitamin D deficiency, unspecified, E78.5 - Hyperlipidemia, unspecified, I10 - Essential (primary) hypertension TSH reflex Free T4 6 Months E55.9 - Vitamin D deficiency, unspecified, E78.5 - Hyperlipidemia, unspecified, I10 - Essential (primary) hypertension Complete Blood Count Auto Diff 6 Months E55.9 - Vitamin D deficiency, unspecified, E78.5 - Hyperlipidemia, unspecified, I10 - Essential (primary) hypertension Referrals Ear/Nose/Throat Referral H83.09 - Labyrinthitis, unspecified ear, R42 - Dizziness and giddiness Medications: Refilled mometasone 50 mcg/actuation administer into each nostril 2 sprays intranasal DAILY PRN 17 grams 5RF nasal congestion Discontinued prednisone 3 tabl QD x 3 days, then 2 tabl x 3 day, 1 tabl qd x 3 days Discontinued Reason: Doctor's Order 20 mg PO DAILY 18 tabs 0RF Coding Level of Care Code Est Pt Level 4 (81354) Diagnoses Vertigo R42 Vestibulitis of ear H83.09 Hyperlipidemia E78.5 Vitamin D deficiency E55.9 Hypertension, unspecified type I10 Hypertension type: unspecified
== END 2023-05-24 11:45 | disposition home or self-care (01) ==
PROVIDERS: PCP Internal Medicine; Visit Provider Internal Medicine
DX: R42 Dizziness and giddiness (principal); H83.09 Labyrinthitis, unspecified ear; E78.5 Hyperlipidemia, unspecified; E55.9 Vitamin D deficiency, unspecified; I10 Essential (primary) hypertension
CPT/HCPCS: 99214

== ENCOUNTER 2023-11-10 07:54 | Outpatient (REF) | payer MEDICARE, SELFPAY ==
[2023-11-10 10:00] LABS: MANUAL DIFF FLAG NO
[2023-11-10 10:12] LABS: Basophils Absolute Auto 0.1 X10*3/uL (0.0-0.2); Basophils Percent Auto 0.7 % (0-2); Eosinophils Absolute Auto 0.2 X10*3/uL (0.0-0.4); Eosinophils Percent Auto 2.8 % (0-4); Hematocrit 42.7 % (37.0-47.0); Hemoglobin 14.1 g/dl (12.0-16.0); Imm Gran Abs Auto 0.04 X10*3/uL (0.00-0.03); Imm Gran Pct Auto 0.6 % (0.0-0.4); Lymphocytes Absolute Auto 2.1 X10*3/uL (1.2-4.9); Lymphocytes Percent Auto 29.6 % (20-40); Mean Corpuscular Hemoglobin 29.7 pg (27.0-33.0); Mean Corpuscular Volume 90.1 fL (80.0-98.0); Mean Platelet Volume 9.4 fL (9.4-12.3); Monocytes Absolute Auto 0.6 X10*3/uL (0.1-1.2); Monocytes Percent Auto 8.5 % (2-11); Neutrophils Absolute Auto 4.2 x10*3/uL (2.0-8.3); Neutrophils Percent Auto 57.8 % (45-73); Platelet Count 280 X10*3/uL (160-400); Red Blood Count 4.74 X10*6/uL (4.20-5.50); Red Cell Distribution Width 14.4 % (11.0-16.0); White Blood Count 7.2 X10*3/uL (4.8-10.8)
[2023-11-10 10:39] LABS: Alanine Aminotransferase 17 U/L (0-31); Albumin Level 4.2 g/dL (3.5-5.0); Alkaline Phosphatase 84 U/L (39-117); Anion Gap 11 (12-20); Aspartate Amino Transferase 17 U/L (5-31); Bilirubin Total 0.4 mg/dL (0.0-1.0); Blood Urea Nitrogen 30 mg/dL (9-16); Calcium 9.6 mg/dL (8.4-10.2); Carbon Dioxide 27 mmol/L (22-29); Chloride 108 mmol/L (96-108); Cholesterol 217 mg/dL (<200); Estimated Glomerular Filt Rate > 60; Glucose Fasting 96 mg/dL (60-99); HDL Cholesterol 45 mg/dL (>40); LDL Cholesterol Calculated 153 mg/dL (<100); Sodium 142 mmol/L (135-145); Triglycerides 97 mg/dL (<150)
[2023-11-10 10:54] LABS: TSH reflex Free T4 1.04 uIU/mL (0.32-4.0); Vitamin D 25-OH Total 74.6 ng/mL (>30)
== END 2023-11-10 07:55 | disposition home or self-care (01) ==
LOC: HO.HMGCLDS 07:54
PROVIDERS: PCP Internal Medicine; Visit Provider Internal Medicine
DX: E78.5 Hyperlipidemia, unspecified (principal); I10 Essential (primary) hypertension; E55.9 Vitamin D deficiency, unspecified
CPT/HCPCS: 36415; 80053; 80061; 82306; 84443; 85025

== ENCOUNTER 2023-11-17 10:30 | Outpatient (AMB) | payer MEDICARE, SELFPAY ==
[2023-11-17 10:35] VITALS: BP 134/80; PULSE 87; O2SAT 98; BMI 26.4
--- NOTE | 2023-11-17 10:35 | A.OFFPC_ITS ---
Vital Signs 11/17/23 10:35 Height 5 ft 11.5 in Weight 192 lb BMI 26.4 BP 134/80 Blood Pressure Location Rt brachial Position Sitting Pulse 87 Pulse Source Pulse Oximeter Pulse Oximetry (%) 98 Oxygen Delivery Method Room Air Intake Visit Reasons: Annual PE Intake Note: Pt is here today for PE. Allergies adhesive tape Adverse Reaction (Verified 11/17/23 10:37) Rash olmesartan Adverse Reaction (Verified 11/17/23 10:37) Stomach Upset Medication List - Last Reconciled 11/17/23 by Taylor Mancilla MD amlodipine 2.5 mg PO DAILY cholecalciferol (vitamin D3) 50 mcg PO DAILY levothyroxine 1 tab daily x6 days, 2 tabs on Monday meclizine 50 mg PO BID mometasone 50 mcg/actuation 2 sprays intranasal DAILY PRN Tobacco use date assessed: 11/17/23 Fall risk assessment: No Falls in past year Last assessed Fall Risk: 11/17/23 Dental Screening Dental Screen Date: 11/17/23 Did you have a dental visit in the last 12 months?: Yes Did you have a dental problem in the last 6 months where you did not have access to dental care?: No Was dental information given to patient?: Patient has dentist HPI Annual PE HPI Details Pt presents for PE. [facility] Medical History Hyperlipidemia Annual physical exam Normal breast exam Hypothyroidism (~05/16/21) Surgical History Hx of unilateral oophorectomy H/O thyroidectomy Hx of colonoscopy Family History Mother CHF (congestive heart failure) Social History Household Members Other:: , no children, Housing: House Patient Tobacco Use Status: Current everyday Tobacco user Cigarettes Per Day: 13 e-Cigarette/Vaping Use: Never Used service: No Current occupational status: retired Cognitive needs: No Hearing needs: No Vision needs: Yes Questionnaire PHQ-9 Over the last 2 weeks, how often have you been bothered by any of the following problems? 1. Little interest or pleasure in doing things: not at all 2. Feeling down, depressed, or hopeless: not at all 3. Trouble falling or staying asleep, or sleeping too much: several days 4. Feeling tired or having little energy: several days 5. Poor appetite or overeating: several days 6. Feeling bad about yourself - or that you are a failure or have let yourself or your family down: not at all 7. Trouble concentrating on things, such as reading the newspaper or watching television: not at all 8. Moving or speaking so slowly that other people could have noticed. Or the opposite - being so fidgety or restless that you have been moving around a lot more than usual: not at all 9. Thoughts that you would be better off or of hurting yourself in some way: not at all Total score: 3 Depression Screening Interpretation: Negative Depression Screening Done: Yes 71042 - PHQ-9 Billing: Yes Source: Developed by Drs. Severo Rodriguez, Vilma Yeung, Huseyin Hassan and colleagues, with an educational castillo from [employer]. Thrive Questionnaire Date Thrive assessed: 11/17/23 I am a: Patient What is your living situation today?: I have a steady place to live Within the past 12 months, did the food you bought not last and you didn't have the money to get more?: Never true Within the past 12 months, did you worry whether your food would run out before you got money to buy more?: Never true Do you have trouble paying for medicines?: No Do you have trouble getting transportation to medical appointments?: No Do you have trouble paying your heating and electricity bill?: No Do you have trouble taking care of your child, family member or friend?: No Do you have trouble with day-to-day activities such as bathing, preparing meals, shopping, managing finances, etc.?: No Are you currently unemployed and looking for a job?: No Are you interested in more education?: No Please select the resources that you would like help with: None Currently or been in a relationship where the following occur: No concerns reported THRIVE Score: 0 AUDIT C Alcohol Use Questionnaire (AUDIT-C) 1. How often do you have a drink containing alcohol?: Monthly or less 2. How many drinks containing alcohol do you have on a typical day when you are drinking?: 1 or 2 3. How often do you have six or more drinks on one occasion?: Never Total Score: 1 MIR-7 AMB Questionnaire MIR-7 Date MIR - 7 assessed: 11/17/23 Feeling nervous, anxious, or on edge: 0 = Not at all Not being able to stop or control worryin = Not at all Worrying too much about different things: 0 = Not at all Trouble relaxin = Not at all Being so restless that it is hard to sit still: 0 = Not at all Becoming easily annoyed or irritable: 0 = Not at all Feeling afraid as if something awful might happen: 0 = Not at all Total MIR-7 score (0-4 normal; 5-9 mild; 10-14 moderate; 15-21 severe): 0 Source: Developed by Drs. Severo Rodriguez, Vilma Yeung, Huseyin Hassan and colleagues, with an educational castillo from [employer]. MIR-7 Assessment Billing MIR-7 Assessment Tool: MIR-7 Assessment 06988 Review of Systems Const All systems reviewed & are unremarkable except as noted in HPI and below Reports no additional complaints Eyes Reports no additional complaints ENT Reports no additional complaints Card Reports no additional complaints Resp Reports no additional complaints GI Reports no additional complaints Reports no additional complaints Physical exam (Primary Care) Vital Signs: Last Vital Signs Pulse 87 11/17/23 10:35 BP 134/80 11/17/23 10:35 Pulse Ox 98 11/17/23 10:35 Oxygen Delivery Method Room Air 11/17/23 10:35 BMI result Body Mass Index 26.4 Tobacco/Smoking Status: Tobacco use Status Tobacco use date assessed 11/17/23 11/17/23 10:40 Patient Tobacco Use Status Current everyday Tobacco 11/17/23 10:40 e-Cigarette/Vaping Use Never Used 11/17/23 10:40 PHQ-9: PHQ-9 Score PHQ-9: Total score 3 11/17/23 10:40 Depression Screening Interpretation: Negative Thrive Assessment: Date of Thrive Assessment Date Thrive assessed 11/17/23 11/17/23 10:40 Currently or been in a relationship where the following occur: No concerns reported Const General: no acute distress HENMT Head: Yes normal to inspection Ears: hearing grossly normal bilaterally Face and sinus: Yes normal facial exam Mouth: Normal oral and palatal mucosa present Throat: Yes posterior oropharynx normal Eyes General: appearance normal, both eyes and all related structures Neck Neck: Yes no lymphadenopathy and Yes supple Resp Effort & Inspection: normal respiratory effort Auscultation: clear to auscultation bilaterally Cardio Rhythm: regular rhythm Heart sounds: S1 normal heart sound present and S2 normal heart sound present GI Inspection: Yes normal to inspection Palpation (GI): Soft to palpation Percussion: Yes normal to percussion Auscultation: normal bowel sounds Coding Level of Care Code Est Pt Prev Care >65y(29419) Diagnoses Annual physical exam Z00.00 Hyperlipidemia E78.5 Vitamin D deficiency E55.9 Hypertension, unspecified type I10 Hypertension type: unspecified Additional Codes MIR-7 Assessment Billing - MIR-7 Assessment Tool: MIR-7 Assessment 59530 ([id number]) Assessment & Plan Assessment & Plan (1) Annual physical exam: Code(s): Z00.00 - Encounter for general adult medical examination without abnormal findings Category: Medical Plan: WELL-BALANCED DIET REGULAR PHYSICAL ACTIVITY DISCUSSED WITH THE PATIENT. SHE WILL SCHEDULE MAMMOGRAM. Tobacco quitting discussed with the patient (2) Hyperlipidemia: Comment: Patient declined taking statins, diet controlled Code(s): E78.5 - Hyperlipidemia, unspecified Category: Medical Plan: Continue low-cholesterol diet regular exercise (3) Vitamin D deficiency: Code(s): E55.9 - Vitamin D deficiency, unspecified Category: Medical Plan: Continue vitamin-D supplement (4) HTN (hypertension): Code(s): I10 - Essential (primary) hypertension Category: Medical Qualifiers: Hypertension type: unspecified Qualified Code(s): I10 - Essential (primary) hypertension Plan: Continue Amlodipine Orders: Orders Comprehensive [place]. Panel Fast 1 Year E55.9 - Vitamin D deficiency, unspecified, E78.5 - Hyperlipidemia, unspecified, I10 - Essential (primary) hypertension, Z00.00 - Encounter for general adult medical examination without abnormal findings Complete Blood Count Auto Diff 1 Year E55.9 - Vitamin D deficiency, unspecified, E78.5 - Hyperlipidemia, unspecified, I10 - Essential (primary) h ypertension, Z00.00 - Encounter for general adult medical examination without abnormal findings Lipid Panel 1 Year E55.9 - Vitamin D deficiency, unspecified, E78.5 - Hyperli pidemia, unspecified, I10 - Essential (primary) hypertension, Z00.00 - Encounter for general adult medical examination without abnormal findings TSH reflex Free T4 1 Year E55.9 - Vitamin D deficiency, unspecified, E78.5 - Hyperlipidemia, unspecified, I10 - Essential (primary) hypertension, Z00.00 - Encounter for general adult medical examination without abnormal findings Medications: Refilled amlodipine 2.5 mg PO DAILY 90 tabs 1RF levothyroxine 1 tab daily x6 days, 2 tabs on Monday 110 tabs 3RF mometasone 50 mcg/actuation administer into each nostril 2 sprays intranasal DAILY PRN 17 grams 5RF nasal congestion
== END 2023-11-17 11:13 | disposition home or self-care (01) ==
PROVIDERS: PCP Internal Medicine; Visit Provider Internal Medicine
DX: Z00.00 Encounter for general adult medical examination without abnormal findings (principal); E78.5 Hyperlipidemia, unspecified; E55.9 Vitamin D deficiency, unspecified; I10 Essential (primary) hypertension

== ENCOUNTER → 2023-11-17 10:30 | Outpatient (BNVA) | payer MEDICARE, SELFPAY | PROVIDERS: PCP Internal Medicine; Visit Provider Internal Medicine | DX: Z00.00 Encounter for general adult medical examination without abnormal findings (principal); E78.5 Hyperlipidemia, unspecified; E55.9 Vitamin D deficiency, unspecified; I10 Essential (primary) hypertension | CPT/HCPCS: 96127; 99397 ==

== ENCOUNTER 2024-02-21 10:13 | Outpatient (AMB) | payer MEDICARE, SELFPAY ==
[2024-02-21 10:15] VITALS: BP 134/78; PULSE 97; O2SAT 98; BMI 26.7
--- NOTE | 2024-02-21 10:15 | A.OFFPC_ITS ---
Vital Signs 02/21/24 10:15 Height 5 ft 11.5 in Weight 194 lb BMI 26.7 BP 134/78 Blood Pressure Location Lt brachial Position Sitting Pulse 97 Pulse Source Pulse Oximeter Pulse Oximetry (%) 98 Oxygen Delivery Method Room Air Intake Visit Reasons: Pre op cataract surgery 03/09/24 Intake Note: Pt is here today for pre op visit. Pt is having cataract surgery on 03/09/[address] Krause. Allergies adhesive tape Adverse Reaction (Verified 02/21/24 10:20) Rash olmesartan Adverse Reaction (Verified 02/21/24 10:20) Stomach Upset Medication List - Last Reconciled 02/21/24 by Taylor Mancilla MD amlodipine 2.5 mg PO BID cholecalciferol (vitamin D3) 50 mcg PO DAILY levothyroxine 1 tab daily x6 days, 2 tabs on Monday meclizine 50 mg PO BID PRN mometasone 50 mcg/actuation 2 sprays intranasal DAILY PRN Tobacco use date assessed: 02/21/24 Fall risk assessment: No Falls in past year Last assessed Fall Risk: 02/21/24 Dental Screening Dental Screen Date: 02/21/24 Did you have a dental visit in the last 12 months?: Yes Did you have a dental problem in the last 6 months where you did not have access to dental care?: No Was dental information given to patient?: Patient has dentist HPI Pre op cataract surgery 03/09/24 HPI Details Patient presents for preop for cataract surgery. hypertension and hypothyroidism are controlled on current medications. [facility], [facility] Medical History Hyperlipidemia Annual physical exam Normal breast exam Hypothyroidism (~05/16/21) Surgical History Hx of unilateral oophorectomy H/O thyroidectomy Hx of colonoscopy Family History Mother CHF (congestive heart failure) Social History Household Members Other:: , no children, Housing: House Patient Tobacco Use Status: Current everyday Tobacco user Cigarettes Per Day: 13 e-Cigarette/Vaping Use: Never Used service: No Current occupational status: retired Cognitive needs: No Hearing needs: No Vision needs: Yes Questionnaire PHQ-9 Over the last 2 weeks, how often have you been bothered by any of the following problems? 1. Little interest or pleasure in doing things: not at all 2. Feeling down, depressed, or hopeless: not at all 3. Trouble falling or staying asleep, or sleeping too much: not at all 4. Feeling tired or having little energy: not at all 5. Poor appetite or overeating: not at all 6. Feeling bad about yourself - or that you are a failure or have let yourself or your family down: not at all 7. Trouble concentrating on things, such as reading the newspaper or watching television: not at all 8. Moving or speaking so slowly that other people could have noticed. Or the opposite - being so fidgety or restless that you have been moving around a lot more than usual: not at all 9. Thoughts that you would be better off or of hurting yourself in some way: not at all Total score: 0 Depression Screening Interpretation: Negative Depression Screening Done: Yes 79658 - PHQ-9 Billing: Yes Source: Developed by Drs. Severo Rodriguez, Vilma Yeung, Huseyin Hassan and colleagues, with an educational castillo from [employer]. Thrive Questionnaire Date Thrive assessed: 02/21/24 I am a: Patient What is your living situation today?: I have a steady place to live Within the past 12 months, did the food you bought not last and you didn't have the money to get more?: Never true Within the past 12 months, did you worry whether your food would run out before you got money to buy more?: Never true Do you have trouble paying for medicines?: No Do you have trouble getting transportation to medical appointments?: No Do you have trouble paying your heating and electricity bill?: No Do you have trouble taking care of your child, family member or friend?: No Do you have trouble with day-to-day activities such as bathing, preparing meals, shopping, managing finances, etc.?: No Are you currently unemployed and looking for a job?: No Are you interested in more education?: No Please select the resources that you would like help with: None Currently or been in a relationship where the following occur: No concerns reported THRIVE Score: 0 AUDIT C Alcohol Use Questionnaire (AUDIT-C) 1. How often do you have a drink containing alcohol?: 2-4 times a month 2. How many drinks containing alcohol do you have on a typical day when you are drinking?: 1 or 2 3. How often do you have six or more drinks on one occasion?: Never Total Score: 2 MIR-7 AMB Questionnaire MIR-7 Date MIR - 7 assessed: 02/21/24 Feeling nervous, anxious, or on edge: 0 = Not at all Not being able to stop or control worryin = Not at all Worrying too much about different things: 0 = Not at all Trouble relaxin = Not at all Being so restless that it is hard to sit still: 0 = Not at all Becoming easily annoyed or irritable: 0 = Not at all Feeling afraid as if something awful might happen: 0 = Not at all Total MIR-7 score (0-4 normal; 5-9 mild; 10-14 moderate; 15-21 severe): 0 Source: Developed by Drs. Severo Rodriguez, Vilma Yeung, Huseyin Hassan and colleagues, with an educational castillo from [employer]. MIR-7 Assessment Billing MIR-7 Assessment Tool: MIR-7 Assessment 57439 Review of Systems Const All systems reviewed & are unremarkable except as noted in HPI and below Eyes Reports no additional complaints Card Reports no additional complaints Resp Reports no additional complaints GI Reports no additional complaints Reports no additional complaints Physical exam (Primary Care) Vital Signs: Last Vital Signs Pulse 97 02/21/24 10:15 BP 134/78 02/21/24 10:15 Pulse Ox 98 02/21/24 10:15 Oxygen Delivery Method Room Air 02/21/24 10:15 BMI result Body Mass Index 26.7 Tobacco/Smoking Status: Tobacco use Status Tobacco use date assessed 02/21/24 02/21/24 10:23 Patient Tobacco Use Status Current everyday Tobacco 02/21/24 10:17 e-Cigarette/Vaping Use Never Used 02/21/24 10:17 PHQ-9: PHQ-9 Score PHQ-9: Total score 0 02/21/24 11:59 Depression Screening Interpretation: Negative Thrive Assessment: Date of Thrive Assessment Date Thrive assessed 02/21/24 02/21/24 10:23 Currently or been in a relationship where the following occur: No concerns reported Const General: no acute distress HENMT Head: Yes normal to inspection Ears: hearing grossly normal bilaterally Mouth: Normal oral and palatal mucosa present Neck Neck: Yes supple Resp Effort & Inspection: normal respiratory effort Auscultation: clear to auscultation bilaterally Cardio Rhythm: regular rhythm Heart sounds: S1 normal heart sound present and S2 normal heart sound present Coding Level of Care Code Est Pt Level 3 (46785) Diagnoses Hypertension, unspecified type I10 Hypertension type: unspecified Cataract H26.9 Additional Codes MIR-7 Assessment Billing - MIR-7 Assessment Tool: MIR-7 Assessment 38017 ([id number]) PHQ-9 - 28487 - PHQ-9 Billing: Yes ([id number]) Assessment & Plan Assessment & Plan (1) HTN (hypertension): Code(s): I10 - Essential (primary) hypertension Category: Medical Qualifiers: Hypertension type: unspecified Qualified Code(s): I10 - Essential (primary) hypertension Plan: Continue current medications (2) Cataract: Code(s): H26.9 - Unspecified cataract Category: Medical Plan: Patient is medically cleared for cataract surgery Medications: Changed From amlodipine 2.5 mg PO DAILY 180 tabs 1RF To amlodipine 2.5 mg PO BID 180 tabs 1RF Taylor Mancilla MD From meclizine 50 mg PO BID 60 tabs 0RF R42 - Dizziness and giddiness To meclizine 50 mg PO BID PRN R42 - Dizziness and giddiness Varsha Mansfield NP Refilled amlodipine 2.5 mg PO DAILY 180 tabs 1RF Taylor Mancilla MD
== END 2024-02-21 10:50 | disposition home or self-care (01) ==
PROVIDERS: PCP Internal Medicine; Visit Provider Internal Medicine
DX: I10 Essential (primary) hypertension (principal); H26.9 Unspecified cataract

== ENCOUNTER → 2024-02-21 10:13 | Outpatient (BNVA) | payer MEDICARE, SELFPAY | PROVIDERS: PCP Internal Medicine; Visit Provider Internal Medicine | DX: Z01.818 Encounter for other preprocedural examination (principal); H26.9 Unspecified cataract; I10 Essential (primary) hypertension; E03.9 Hypothyroidism, unspecified; Z79.899 Other long term (current) drug therapy | CPT/HCPCS: 96127; 99212 ==

== ENCOUNTER 2024-05-28 10:42 | Outpatient (AMB) | payer MEDICARE, SELFPAY ==
--- NOTE | 2024-05-28 10:42 | A.OFFPC_ITS ---
Vital Signs 05/28/24 10:43 Height 5 ft 11.5 in Weight 197 lb BMI 27.1 BP 138/70 Blood Pressure Location Rt brachial Position Sitting Pulse 94 Pulse Source Pulse Oximeter Temp 98.1 F Temp Source Oral Pulse Oximetry (%) 97 Oxygen Delivery Method Room Air Intake Visit Reasons: 4 months f/up- BP check up Intake Note: Pt is here today for 4 months follow up visit on BP. Allergies adhesive tape Adverse Reaction (Verified 05/28/24 10:43) Rash olmesartan Adverse Reaction (Verified 05/28/24 10:43) Stomach Upset Medication List - Last Reconciled 05/28/24 by Taylor Mancilla MD amlodipine 2.5 mg PO BID cholecalciferol (vitamin D3) 50 mcg PO DAILY levothyroxine 1 tab daily x6 days, 2 tabs on Monday meclizine 50 mg PO BID PRN mometasone 50 mcg/actuation 2 sprays intranasal DAILY PRN Tobacco use date assessed: 05/28/24 Dental Screening Dental Screen Date: 02/21/24 HPI 4 months f/up- BP check up HPI Details Pt presents for f/u HTN hypothyroidism and chronic vertigo. Patient increase amlodipine to 2.5 mg twice a day but became very weak and dizzy and has been taking amlodipine only once a day. Patient reports well-controlled blood pressure at home with the readings of 120/70. [facility] Medical History Hyperlipidemia Annual physical exam Normal breast exam Hypothyroidism (~05/16/21) Surgical History Hx of unilateral oophorectomy H/O thyroidectomy Hx of colonoscopy Family History Mother CHF (congestive heart failure) Social History Household Members Other:: , no children, Housing: House Patient Tobacco Use Status: Current everyday Tobacco user Cigarettes Per Day: 13 e-Cigarette/Vaping Use: Never Used service: No Current occupational status: retired Cognitive needs: No Hearing needs: No Vision needs: Yes Questionnaire Thrive Questionnaire Date Thrive assessed: 02/21/24 AUDIT C Alcohol Use Questionnaire (AUDIT-C) 1. How often do you have a drink containing alcohol?: 2-4 times a month 2. How many drinks containing alcohol do you have on a typical day when you are drinking?: 1 or 2 3. How often do you have six or more drinks on one occasion?: Never Total Score: 2 MIR-7 AMB Questionnaire MIR-7 Date MIR - 7 assessed: 02/21/24 Source: Developed by Drs. Severo Rodriguez, Vilma Yeung, Huseyin Hassan and colleagues, with an educational castillo from [employer]. Review of Systems Const All systems reviewed & are unremarkable except as noted in HPI and below ENT Reports no additional complaints Card Reports no additional complaints Resp Reports no additional complaints GI Reports no additional complaints Physical exam (Primary Care) Vital Signs: Last Vital Signs Temp 98.1 F 05/28/24 10:43 Pulse 94 05/28/24 10:43 Pulse Ox 97 05/28/24 10:43 Oxygen Delivery Method Room Air 05/28/24 10:43 BMI result Body Mass Index 27.1 Tobacco/Smoking Status: Tobacco use Status Tobacco use date assessed 05/28/24 05/28/24 10:43 Patient Tobacco Use Status Current everyday Tobacco 05/28/24 10:43 e-Cigarette/Vaping Use Never Used 05/28/24 10:43 Thrive Assessment: Date of Thrive Assessment Date Thrive assessed 02/21/24 05/28/24 10:43 Const General: no acute distress HENMT Head: Yes normal to inspection Mouth: Normal oral and palatal mucosa present Eyes General: appearance normal, both eyes and all related structures Resp Effort & Inspection: normal respiratory effort Auscultation: clear to auscultation bilaterally Cardio Rhythm: regular rhythm Heart sounds: S1 normal heart sound present and S2 normal heart sound present Coding Level of Care Code Est Pt Level 3 (31769) Diagnoses Hyperlipidemia E78.5 Hypertension, unspecified type I10 Hypertension type: unspecified Assessment & Plan Assessment & Plan (1) Hyperlipidemia: Comment: Patient declined taking statins, diet controlled Code(s): E78.5 - Hyperlipidemia, unspecified Category: Medical Plan: Continue low-cholesterol diet regular exercise (2) HTN (hypertension): Code(s): I10 - Essential (primary) hypertension Category: Medical Qualifiers: Hypertension type: unspecified Qualified Code(s): I10 - Essential (primary) hypertension Plan: Continue amlodipine 2.5 mg daily patient declined increasing the dose of amlodipine. She will continue to monitor her blood pressure at home Orders: Orders Lipid Panel 1 Month E78.5 - Hyperlipidemia, unspecified, I10 - Essential (primary) hypertension Comprehensive [place]. Panel Fast 1 Month E78.5 - Hyperlipidemia, unspecified, I10 - Essential (primary) hypertension Medications: Refilled amlodipine 2.5 mg PO BID 180 tabs 1RF amlodipine 2.5 mg PO BID 180 tabs 1RF
[2024-05-28 10:43] VITALS: BP 138/70; PULSE 94; TEMP 36.7; O2SAT 97; BMI 27.1
--- OUTSIDE RECORDS SUMMARY | 2024-05-28 12:56 | XMS_ITS | Clinical Summary ---
Author Organization [facility] [address] [facility] Address [address] [place] [address] Phone Care Team Providers Care Cask Maker Name Role Phone Juancho Fan NP Primary Care Provider [phone] Encounters Date Type Department Care Team Description 05/17/2024 10:06 AM EDT - 05/17/2024 11:59 PM EDT Hospital Encounter [facility] CT Scan [address] [place] [address] Encounter for screening for malignant neoplasm of respiratory organs; Nicotine dependence, cigarettes, uncomplicated Discharge Disposition: Home or Self Care 04/11/2024 Telephone Lung Screening Program - [address] [place] [phone] Becky Yeung [place] Appointment (1st Notification) from Last 3 Months Surgical History Surgery Date Site/Laterality Comments OTHER SURGICAL HISTORY PROCEDURE: OR THYROIDECTOMY TOTAL/COMPLETE; COMMENT: Per PCP Note H/O COLONOSCOPY N/A PROCEDURE: HISTORICAL COLONOSCOPY; COMMENT: Per pcpc history of Colonoscopy OOPHORECTOMY PROCEDURE: OR OOPHORECTOMY PARTIAL/TOTAL UNI/BI; COMMENT: Per PCP Notes history of Medical History Medical History Date Comments Mixed hyperlipidemia DX:Mixed hy perlipidemia Hypothyroidism 05/16/2021 DX:Hypothyroidis m Normal breast exam DX:Normal trae ast exam Family History Medical History Relation Name Comments Heart failure Mother Relation Name Status Comments Mother Social History Tobacco Use Types Packs/Day Years Used Date Smoking Tobacco: Every Day Cigarettes 0.5 50.3 Started: [birth year]/13/1974 Comments Unknown Sex and Gender Information Value Date Recorded Sex Assigned at Female 05/17/2024 10:05 AM EDT Legal Sex Female 11:51 PM EST Gender Identity Female 05/17/2024 10:05 AM EDT Sexual Orientation Not on file Obstetrics History Plan of Treatment Health Maintenance Due Date Last Done Comments Breast Cancer Screening 1955 DTaP,Tdap,and Td Vaccines (1 - Tdap) 1974 Colorectal Cancer Screening: Colonoscopy 01/16/2022 Depression Screening 01/16/2022 Falls Risk Assessment 01/16/2022 Hepatitis C Screening 01/16/2022 Medicare Annual Wellness Visit 01/16/2022 Osteoporosis Screening (Bone Density Screening) 01/16/2022 Social Influencers of Health Screening 01/16/2022 COVID-19 Vaccine (3 - 2023-2 5 season) 2023 07/06/2020, 06/08/2020 RSV Immunization Adult Patients (1 - 1-dose 75+ series) 2030 Zoster Vaccines Completed 03/03/2020, 12/06/2019 Pneumococcal Vaccine: 50+ Years Completed 12/02/2021 Influenza Vaccine Completed 02/12/2024, 01/06/2023, 01/18/2021 HIB Vaccines Aged Out No longer eligi ble based on patient's age to complete this topic HPV Vaccines Aged Out No longer eligi ble based on patient's age to complete this topic Hepatitis A Vaccines Aged Out No long er eligible based on patient's age to complete this topic Hepatitis B Vaccines Aged Out No long er eligible based on patient's age to complete this topic IPV Vaccines Aged Out No longer eligi ble based on patient's age to complete this topic MMR Vaccines Aged Out No longer eligi ble based on patient's age to complete this topic Meningococcal ACWY Vaccine Aged Out N o longer eligible based on patient's age to complete this topic Meningococcal B Vaccine Aged Out No l onger eligible based on patient's age to complete this topic RSV Immunization Patients Under 20 months Aged Out No longer eligible b ased on patient's age to complete this topic Varicella Vaccines Aged Out No longer eligible based on patient's age to complete this topic Procedures Procedure Name Priority Date/Time Associated Diagnosis Comments CT LUNG SCREENING Routine 05/17/2024 10: 16 AM EDT Encounter for screening for malignant neoplasm of respiratory organs Nicotine dependence, cigarettes, uncomplicated from Last 3 Months Results * CT Lung Screening (05/17/2024 10:16 AM EDT) Anatomical Region Laterality Modality Chest Computed Tomogra phy 05/21/2024 2:48 PM EDT Impressions 05/21/2024 3:00 PM EDT No suspicious mass or nodule. ??No suspicious interval change. ??Stable left upper lobe nodule measuring 0.6 cm in greatest diameter. ?? LUNG RADS: Lung-RADS 2: BENIGN S Modifier (Significant or Potentially Significant Findings): None present No suspicious nonpulmonary findings. RECOMMENDATIONS: 12 month screening low dose CT -------- FINAL REPORT -------- Dictated By: Dc Bartlett Dictated Date: 05/21/2024 14:48 ET Assigned Physician: Dc Bartlett Reviewed and Electronically Signed By: Dc Bartlett Signed Date: 05/21/2024 15:00 ET Workstation ID: [id number] Transcribed By: Self Edit Transcribed Date: 05/21/2024 14:48 ET Narrative 05/21/2024 3:00 PM EDT EXAMINATION: CT CHEST WITHOUT CONTRAST LUNG CANCER SCREENING, LOW DOSE CLINICAL INFORMATION: Lung cancer screening. ??Current smoker COMPARISON: Portions of previous 04/28/23 ?? TECHNIQUE: Multidetector CT. Examination of the chest. Examination of the chest without IV contrast. Reformatting in the coronal and sagittal planes. Device: [email or web address] VCT DLP: 174 mGy-cm CTDI: 4.83 Dose optimization was performed including the use of low-dose iterative reconstruction technique with automatic exposure control based on patient size. Type of contrast: None Volume of IV contrast: None Volume of contrast discarded: 0 mL FINDINGS: LUNG: No abnormality of the trachea or mainstem bronchi. No focal pneumonia. ?? LUNG NODULES: Oval solid nodule lateral aspect left upper lobe-long axis 05/17/24-0.6 cm () 04/28/23-0.6 cm 04/15/22-0.6 cm OTHER PULMONARY: ??There are a few small areas of inspissated material within small airways. ??No honeycomb formation MEDIASTINUM: ??There are no enlarged mediastinal or hilar lymph nodes. No suspicious abnormalities of the esophagus. ??Small calcified nodule right lobe thyroid appears unchanged. CARDIAC: The heart is not enlarged. No pericardial fluid or thickening ?? There are mild coronary calcifications. VASCULAR: There is no thoracic aortic aneurysm. The main pulmonary artery is normal caliber ?? PLEURA: There is no pleural fluid or pneumothorax ?? AXILLA/CHEST WALL: There are no enlarged axillary lymph nodes. No chest wall mass demonstrated ?? VISUALIZED UPPER ABDOMEN: ??No suspicious abnormality on limited assessment of the visualized upper abdomen. ??Unchanged 7 mm nonobstructing calculus upper pole left kidney 9.8 cm from the skin MUSCULOSKELETAL: No suspicious focal bony lesion demonstrated. Procedure Note Dc Bartlett MD - 05/21/2024 EXAMINATION: CT CHEST WITHOUT CONTRAST LUNG CANCER SCREENING, LOW DOSE CLINICAL INFORMATION: Lung cancer screening. Current smoker COMPARISON: Portions of previous 04/28/23 TECHNIQUE: Multidetector CT. Examination of the chest. Examination of the chest without IV contrast. Reformatting in the coronal and sagittal planes. Device: [email or web address] VCT DLP: 174 mGy-cm CTDI: 4.83 Dose optimization was performed including the use of low-dose iterativereconstruction technique with automatic exposure control based on patientsize. Type of contrast: None Volume of IV contrast: None Volume of contrast discarded: 0 mL FINDINGS: LUNG: No abnormality of the trachea or mainstem bronchi. No focalpneumonia. LUNG NODULES: Oval solid nodule lateral aspect left upper lobe-long axis 05/17/24-0.6 cm () 04/28/23-0.6 cm 04/15/22-0.6 cm OTHER PULMONARY: There are a few small areas of inspissated materialwithin small airways. No honeycomb formation MEDIASTINUM: There are no enlarged mediastinal or hilar lymph nodes. Nosuspicious abnormalities of the esophagus. Small calcified nodule rightlobe thyroid appears unchanged. CARDIAC: The heart is not enlarged. No pericardial fluid or thickening There are mild coronary calcifications. VASCULAR: There is no thoracic aortic aneurysm. The main pulmonary arteryis normal caliber PLEURA: There is no pleural fluid or pneumothorax AXILLA/CHEST WALL: There are no enlarged axillary lymph nodes. No chestwall mass demonstrated VISUALIZED UPPER ABDOMEN: No suspicious abnormality on limited assessmentof the visualized upper abdomen. Unchanged 7 mm nonobstructing calculusupper pole left kidney 9.8 cm from the skin MUSCULOSKELETAL: No suspicious focal bony lesion demonstrated. IMPRESSION: No suspicious mass or nodule. No suspicious interval change. Stable leftupper lobe nodule measuring 0.6 cm in greatest diameter. LUNG RADS: Lung-RADS 2: BENIGN S Modifier (Significant or Potentially Significant Findings): Nonepresent No suspicious nonpulmonary findings. RECOMMENDATIONS: 12 month screening low dose CT -------- FINAL REPORT -------- Dictated By: Dc Bartlett Dictated Date: 05/21/2024 14:48 ET Assigned Physician: Dc Bartlett Reviewed and Electronically Signed By: Dc Bartlett Signed Date: 05/21/2024 15:00 ET Workstation ID: [id number] Transcribed By: Self Edit Transcribed Date: 05/21/2024 14:48 ET Dk Dumont MD IMG CT PROCEDURES Final Result from Last 3 Months Insurance BLUE CROSS - [place] MEDICARE ADVANTAGE Care Teams Cask Maker Relationship Specialty Start Date End Date Juancho Fan NP [address] [facility] [address] [place] [address] PCP - General 11/11/10
== END 2024-05-28 11:33 | disposition home or self-care (01) ==
LOC: HO.HMCC 10:42
PROVIDERS: PCP Internal Medicine; Visit Provider Internal Medicine
DX: E78.5 Hyperlipidemia, unspecified (principal); I10 Essential (primary) hypertension

== ENCOUNTER → 2024-05-28 10:42 | Outpatient (BNVA) | payer MEDICARE, SELFPAY | PROVIDERS: PCP Internal Medicine; Visit Provider Internal Medicine | DX: I10 Essential (primary) hypertension (principal); E03.9 Hypothyroidism, unspecified; R42 Dizziness and giddiness; E78.5 Hyperlipidemia, unspecified; Z79.899 Other long term (current) drug therapy | CPT/HCPCS: 99212 ==

== ENCOUNTER 2024-07-16 07:39 | Outpatient (REF) | payer MEDICARE, SELFPAY ==
--- OUTSIDE RECORDS SUMMARY | 2024-07-16 07:42 | XMS_ITS | Clinical Summary ---
Author Organization [facility] [address] [facility] Address [address] [place] [address] Phone Care Team Providers Care Gas Mask Inspector Name Role Phone Juancho Fan NP Primary Care Provider [phone] Encounters Date Type Department Care Team Description 05/17/2024 10:06 AM EDT - 05/17/2024 11:59 PM EDT Hospital Encounter [facility] CT Scan [address] [place] [phone] Encounter for screening for malignant neoplasm of respiratory organs; Nicotine dependence, cigarettes, uncomplicated Discharge Disposition: Home or Self Care from Last 3 Months Surgical History Surgery Date Site/Laterality Comments OTHER SURGICAL HISTORY PROCEDURE: AL THYROIDECTOMY TOTAL/COMPLETE; COMMENT: Per PCP Note H/O COLONOSCOPY N/A PROCEDURE: HISTORICAL COLONOSCOPY; COMMENT: Per pcpc history of Colonoscopy OOPHORECTOMY PROCEDURE: AL OOPHORECTOMY PARTIAL/TOTAL UNI/BI; COMMENT: Per PCP Notes history of Medical History Medical History Date Comments Mixed hyperlipidemia DX:Mixed hy perlipidemia Hypothyroidism 05/16/2021 DX:Hypothyroidis m Normal breast exam DX:Normal trae ast exam Family History Medical History Relation Name Comments Heart failure Mother Relation Name Status Comments Mother Social History Tobacco Use Types Packs/Day Years Used Date Smoking Tobacco: Every Day Cigarettes 0.5 50.4 Started: 02/13/1974 Comments Unknown Sex and Gender [...] Signed Date: 05/21/2024 15:00 ET Workstation ID: [id number] Transcribed By: Self Edit Transcribed Date: 05/21/2024 14:48 ET Narrative 05/21/2024 3:00 PM EDT EXAMINATION: CT CHEST WITHOUT CONTRAST LUNG CANCER SCREENING, LOW DOSE CLINICAL INFORMATION: Lung cancer screening. ??Current smoker COMPARISON: Portions of previous 04/28/23 ?? TECHNIQUE: Multidetector CT. Examination of the chest. Examination of the chest without IV contrast. Reformatting in the coronal and sagittal planes. Device: [employer]GC VCT DLP: 174 mGy-cm CTDI: 4.83 Dose [...] in the coronal and sagittal planes. Device: AGC VCT DLP: 174 mGy-cm CTDI: 4.83 Dose [...] Signed Date: 05/21/2024 15:00 ET Workstation ID: [id number] Transcribed By: Self Edit Transcribed Date: 05/21/2024 14:48 ET us Dk Dumont MD IM CT PROCEDURES Final Result from Last 3 Months Insurance BL[place] - [place] MEDICARE ADVANTAGE Care Teams Gas Mask Inspector Relationship Specialty Start Date End Date Juancho Fan NP [address] [facility] [address] [place] [address] PCP - General 11/11/10
[2024-07-16 11:16] LABS: Alanine Aminotransferase 16 U/L (0-31); Albumin Level 4.2 g/dL (3.5-5.0); Alkaline Phosphatase 86 U/L (39-117); Anion Gap 10 (12-20); Aspartate Amino Transferase 22 U/L (5-31); Bilirubin Total 0.3 mg/dL (0.0-1.0); Blood Urea Nitrogen 31 mg/dL (9-16); Calcium 9.6 mg/dL (8.4-10.2); Carbon Dioxide 27 mmol/L (22-29); Chloride 110 mmol/L (96-108); Cholesterol 217 mg/dL (<200); Estimated Glomerular Filt Rate > 60; Glucose Fasting 95 mg/dL (60-99); HDL Cholesterol 38 mg/dL (>40); LDL Cholesterol Calculated 162 mg/dL (<100); Potassium 3.8 mmol/L (3.3-5.1); Sodium 143 mmol/L (135-145); Total Protein 6.8 g/dL (6.5-8.0); Triglycerides 88 mg/dL (<150)
== END 2024-07-16 07:40 | disposition home or self-care (01) ==
LOC: HO.HMGCLDS 07:39
PROVIDERS: PCP Internal Medicine; Visit Provider Internal Medicine
DX: I10 Essential (primary) hypertension (principal); E78.5 Hyperlipidemia, unspecified
CPT/HCPCS: 36415; 80053; 80061

== ENCOUNTER 2024-08-02 09:56 | Outpatient (AMB) | payer MEDICARE, SELFPAY ==
[2024-08-02 09:58] VITALS: BP 136/74; PULSE 89; RESP 18; TEMP 36.7; O2SAT 98; BMI 27.1
--- NOTE | 2024-08-02 09:58 | MHC.PC.OV ---
Vital Signs 08/02/24 09:58 Height 5 ft 11.5 in Weight 197 lb BMI 27.1 BP 136/74 Blood Pressure Location Lt brachial Position Sitting Respiration 18 Pulse 89 Pulse Source Pulse Oximeter Temp 98.1 F Temp Source Oral Pulse Oximetry (%) 98 Oxygen Delivery Method Room Air Intake Visit Reasons: f/u Intake Note: Pt is here today for a follow up visit. Allergies adhesive tape Adverse Reaction (Verified 08/02/24 09:59) Rash olmesartan Adverse Reaction (Verified 08/02/24 09:59) Stomach Upset Medication List - Last Reconciled 08/02/24 by Taylor Mancilla MD amlodipine 2.5 mg PO BID cholecalciferol (vitamin D3) 50 mcg PO DAILY levothyroxine 1 tab daily x6 days, 2 tabs on Monday meclizine 50 mg PO BID PRN mometasone 50 mcg/actuation 2 sprays intranasal DAILY PRN Tobacco use date assessed: 08/02/24 Dental Screening Dental Screen Date: 02/21/24 HPI f/u HPI Details Patient presents for the follow-up on hypertension and hyperlipidemia PFSH Medical History Hyperlipidemia Annual physical exam Normal breast exam Hypothyroidism (~05/16/21) Surgical History Hx of unilateral oophorectomy H/O thyroidectomy Hx of colonoscopy Family History Mother CHF (congestive heart failure) Social History Household Members Other:: , no children, Housing: House Patient Tobacco Use Status: Current everyday Tobacco user Cigarettes Per Day: 13 e-Cigarette/Vaping Use: Never Used service: No Current occupational status: retired Cognitive needs: No Hearing needs: No Vision needs: Yes Questionnaire Thrive Questionnaire Date Thrive assessed: 02/21/24 I am a: Patient What is your living situation today?: I have a steady place to live Within the past 12 months, did the food you bought not last and you didn't have the money to get more?: Never true Within the past 12 months, did you worry whether your food would run out before you got money to buy more?: Never true Do you have trouble paying for medicines?: No Do you have trouble getting transportation to medical appointments?: No Do you have trouble paying your heating and electricity bill?: No Do you have trouble taking care of your child, family member or friend?: No Do you have trouble with day-to-day activities such as bathing, preparing meals, shopping, managing finances, etc.?: No Are you currently unemployed and looking for a job?: No Are you interested in more education?: No Please select the resources that you would like help with: None Currently or been in a relationship where the following occur: No concerns reported THRIVE Score: 0 MIR-7 AMB Questionnaire MIR-7 Date MIR - 7 assessed: 02/21/24 Source: Developed by Drs. Severo Rodriguez, Vilma Yeung, Huseyin Hassan and colleagues, with an educational castillo from [employer]. Review of Systems Const All systems reviewed & are unremarkable except as noted in HPI and below Eyes Reports no additional complaints ENT Reports no additional complaints Card Reports no additional complaints Resp Reports no additional complaints GI Reports no additional complaints Reports no additional complaints Physical exam (Primary Care) Vital Signs: Last Vital Signs Temp 98.1 F 08/02/24 09:58 Pulse 89 08/02/24 09:58 Resp 18 08/02/24 09:58 BP 136/74 08/02/24 09:58 Pulse Ox 98 08/02/24 09:58 Oxygen Delivery Method Room Air 08/02/24 09:58 BMI result Body Mass Index 27.1 Tobacco/Smoking Status: Tobacco use Status Tobacco use date assessed 08/02/24 08/02/24 09:59 Patient Tobacco Use Status Current everyday Tobacco 08/02/24 09:58 e-Cigarette/Vaping Use Never Used 08/02/24 09:58 Thrive Assessment: Date of Thrive Assessment Date Thrive assessed 02/21/24 08/02/24 09:58 Currently or been in a relationship where the following occur: No concerns reported Const General: no acute distress HENMT Head: Yes normal to inspection Ears: hearing grossly normal bilaterally Throat: Yes posterior oropharynx normal Neck Neck: Yes no lymphadenopathy and Yes supple Resp Effort & Inspection: normal respiratory effort Auscultation: clear to auscultation bilaterally Cardio Rhythm: regular rhythm Heart sounds: S1 normal heart sound present and S2 normal heart sound present GI Inspection: Yes normal to inspection Palpation (GI): Soft to palpation Percussion: Yes normal to percussion Auscultation: normal bowel sounds Coding Level of Care Code Est Pt Level 4 (86094) Diagnoses Hypothyroidism E03.9 Hyperlipidemia E78.5 Hypertension, unspecified type I10 Hypertension type: unspecified Assessment & Plan Assessment & Plan (1) Hypothyroidism: Onset Date: ~05/16/21 Code(s): E03.9 - Hypothyroidism, unspecified Category: Medical Plan: Continue levothyroxine (2) Hyperlipidemia: Comment: Patient declined taking statins, diet controlled Code(s): E78.5 - Hyperlipidemia, unspecified Category: Medical Plan: Continue low-cholesterol diet regular exercise patient declined taking medications (3) HTN (hypertension): Code(s): I10 - Essential (primary) hypertension Category: Medical Qualifiers: Hypertension type: unspecified Qualified Code(s): I10 - Essential (primary) hypertension Plan: Continue amlodipine Orders: Orders Lipid Panel 4 Months E03.9 - Hypothyroidism, unspecified, E78.5 - Hyperlipidemia, unspecified, I10 - Essential (primary) hypertension TSH reflex Free T4 4 Months E03.9 - Hypothyroidism, unspecified, E78.5 - Hyperlipidemia, unspecified, I10 - Essential (primary) hypertension Complete Blood Count Auto Diff 4 Months E03.9 - Hypothyroidism, unspecified, E78.5 - Hyperlipidemia, unspecified, I10 - Essential (primary) hypertension Comprehensive [place]. Panel Fast 4 Months E03.9 - Hypothyroidism, unspecified, E78.5 - Hyperlipidemia, unspecified, I10 - Essential (primary) hypertension
--- OUTSIDE RECORDS SUMMARY | 2024-08-02 10:13 | XMS_ITS | Clinical Summary ---
Author Organization [facility] [address] [facility] Address [address] [place] [address] Phone Care Team Providers Care Cell Tender Name Role Phone Juancho Fan NP Primary Care Provider [phone] Encounters Date Type Department Care Team Description 05/17/2024 10:06 AM EDT - 05/17/2024 11:59 PM EDT Hospital Encounter [facility] CT Scan [address] [place] [id number] Encounter for screening for malignant neoplasm of respiratory organs; Nicotine dependence, cigarettes, uncomplicated Discharge Disposition: Home or Self Care from Last 3 Months Surgical History Surgery Date Site/Laterality Comments OTHER SURGICAL HISTORY PROCEDURE: [place] THYROIDECTOMY TOTAL/COMPLETE; COMMENT: Per PCP Note H/O COLONOSCOPY N/A PROCEDURE: HISTORICAL COLONOSCOPY; COMMENT: Per pcpc history of Colonoscopy OOPHORECTOMY PROCEDURE: [place] OOPHORECTOMY PARTIAL/TOTAL UNI/BI; COMMENT: Per PCP Notes history of Medical History Medical History Date Comments Mixed hyperlipidemia DX:Mixed hy perlipidemia Hypothyroidism 05/16/2021 DX:Hypothyroidis m Normal breast exam DX:Normal trae ast exam Family History Medical History Relation Name Comments Heart failure Mother Relation Name Status Comments Mother Social History Tobacco Use Types Packs/Day Years Used Date Smoking Tobacco: Every Day Cigarettes 0.5 50.5 Started: [birth year]/13/1974 Comments Unknown Sex and Gender [...] PM EDT No suspicious mass or nodule. No suspicious interval change. Stable left upper lobe nodule measuring 0.6 cm [...] Signed Date: 05/21/2024 15:00 ET Workstation ID: [id number] Transcribed By: Self Edit Transcribed Date: 05/21/2024 14:48 ET Narrative 05/21/2024 3:00 PM EDT EXAMINATION: CT CHEST WITHOUT CONTRAST LUNG CANCER SCREENING, LOW DOSE CLINICAL INFORMATION: Lung cancer screening. Current smoker COMPARISON: Portions of previous 04/28/23 TECHNIQUE: Multidetector CT. Examination of the chest. Examination of the chest without IV contrast. Reformatting in the coronal and sagittal planes. Device: [employer] VCT DLP: 174 mGy-cm CTDI: 4.83 Dose optimization was performed including the use of low-dose iterative reconstruction technique with automatic exposure control based on patient size. Type of contrast: None Volume of IV contrast: None Volume of contrast discarded: 0 mL FINDINGS: LUNG: No abnormality of the trachea or mainstem bronchi. No focal pneumonia. LUNG NODULES: Oval solid nodule lateral aspect left upper lobe-long axis 05/17/24-0.6 cm () 04/28/23-0.6 cm 04/15/22-0.6 cm OTHER PULMONARY: There are a few small areas of inspissated material within small airways. No honeycomb formation MEDIASTINUM: There are no enlarged mediastinal or hilar lymph nodes. No suspicious abnormalities of the esophagus. Small calcified nodule right lobe thyroid appears unchanged. CARDIAC: The heart is not enlarged. No pericardial fluid or thickening There are mild coronary calcifications. VASCULAR: There is no thoracic aortic aneurysm. The main pulmonary artery is normal caliber PLEURA: There is no pleural fluid or pneumothorax AXILLA/CHEST WALL: There are no enlarged axillary lymph nodes. No chest wall mass demonstrated VISUALIZED UPPER ABDOMEN: No suspicious abnormality on limited assessment of the visualized upper abdomen. Unchanged 7 mm nonobstructing calculus upper pole left [...] in the coronal and sagittal planes. Device: [employer] VCT DLP: 174 mGy-cm CTDI: 4.83 Dose [...] Signed Date: 05/21/2024 15:00 ET Workstation ID: [id number] Transcribed By: Self Edit Transcribed Date: 05/21/2024 14:48 ET us Dk Dumont MD IMG CT PROCEDURES Final Result from Last 3 Months Insurance BLUE CROSS - [place] MEDICARE ADVANTAGE Care Teams Cell Tender Relationship Specialty Start Date End Date Juancho Fan NP [address] [facility] [address] [place] [address] PCP - General 11/11/10
== END 2024-08-02 11:17 | disposition home or self-care (01) ==
LOC: HO.HMCC 09:56
PROVIDERS: PCP Internal Medicine; Visit Provider Internal Medicine
DX: E03.9 Hypothyroidism, unspecified (principal); E78.5 Hyperlipidemia, unspecified; I10 Essential (primary) hypertension

== ENCOUNTER → 2024-08-02 09:56 | Outpatient (BNVA) | payer MEDICARE, SELFPAY | PROVIDERS: PCP Internal Medicine; Visit Provider Internal Medicine | DX: I10 Essential (primary) hypertension (principal); E78.5 Hyperlipidemia, unspecified; E03.9 Hypothyroidism, unspecified | CPT/HCPCS: 99212 ==

== ENCOUNTER 2024-12-03 08:31 | Outpatient (REF) | payer MEDICARE, SELFPAY ==
[2024-12-03 10:40] LABS: MANUAL DIFF FLAG NO
[2024-12-03 10:56] LABS: Hematocrit 42.5 % (37.0-47.0); Hemoglobin 13.9 g/dl (12.0-16.0); Imm Gran Abs Auto 0.04 X10*3/uL (0.00-0.03); Imm Gran Pct Auto 0.5 % (0.0-0.4); Lymphocytes Absolute Auto 2.6 X10*3/uL (1.2-4.9); Mean Corpuscular HGB Conc 32.7 g/dl (31.0-35.0); Mean Corpuscular Hemoglobin 28.9 pg (27.0-33.0); Mean Corpuscular Volume 88.4 fL (80.0-98.0); NRBC Abs Auto 0.000 X10*3/uL (0.0-0.012); NRBC Pct Auto 0.0 /100WBC (0.0-0.2); Platelet Count 293 X10*3/uL (160-400); Red Blood Count 4.81 X10*6/uL (4.20-5.50); White Blood Count 8.1 X10*3/uL (4.8-10.8)
[2024-12-03 12:45] LABS: Alanine Aminotransferase 18 U/L (0-31); Albumin Level 4.4 g/dL (3.5-5.0); Alkaline Phosphatase 96 U/L (39-117); Anion Gap 10 (12-20); Aspartate Amino Transferase 24 U/L (5-31); Blood Urea Nitrogen 27 mg/dL (9-16); Calcium 9.4 mg/dL (8.4-10.2); Carbon Dioxide 26 mmol/L (22-29); Chloride 111 mmol/L (96-108); Cholesterol 220 mg/dL (<200); Estimated Glomerular Filt Rate > 60; HDL Cholesterol 44 mg/dL (>40); Potassium 4.3 mmol/L (3.3-5.1); Sodium 143 mmol/L (135-145); Total Protein 6.9 g/dL (6.5-8.0); Triglycerides 106 mg/dL (<150)
[2024-12-03 15:45] LABS: Free T4 (Free Thyroxine) 1.26 ng/dL (0.71-1.85)
== END 2024-12-03 08:32 | disposition home or self-care (01) ==
LOC: HO.HMGCLDS 08:31
PROVIDERS: PCP Internal Medicine; Visit Provider Internal Medicine
DX: Z00.00 Encounter for general adult medical examination without abnormal findings (principal); I10 Essential (primary) hypertension; E55.9 Vitamin D deficiency, unspecified; E78.5 Hyperlipidemia, unspecified
CPT/HCPCS: 36415; 80053; 80061; 84439; 84443; 85025

== ENCOUNTER 2024-12-09 11:53 | Outpatient (AMB) | payer MEDICARE, SELFPAY ==
[2024-12-09 11:56] VITALS: BP 158/82; PULSE 87; RESP 16; TEMP 36.4; O2SAT 97; BMI 27.2
--- NOTE | 2024-12-09 11:56 | A.OFFPC_ITS ---
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 Engine Required: No Accompanied by: Self / Same As Patient Allergies adhesive tape Adverse Reaction (Verified 08/02/24 09:59) Rash olmesartan Adverse Reaction (Verified 08/02/24 09:59) Stomach Upset Medication List - Last Reconciled 12/09/24 by Taylor Mancilla MD amlodipine 2.5 mg PO BID cholecalciferol (vitamin D3) 50 mcg PO DAILY levothyroxine 1 tab daily x6 days, 2 tabs on Monday meclizine 50 mg PO BID PRN mometasone 50 mcg/actuation 2 sprays intranasal DAILY PRN Tobacco use date assessed: 12/09/24 Fall risk assessment: No Falls in past year Last assessed Fall Risk: 12/09/24 Dental Screening Dental Screen Date: 12/09/24 Did you have a dental visit in the last 12 months?: Yes Did you have a dental problem in the last 6 months where you did not have access to dental care?: No Was dental information given to patient?: Patient has dentist HPI Annual PE HPI Details Pt presents for PE. Pt c/o chronic lower back pain radiating to LLE pain, worse after lifting heavy working in the garden walking longer distance. Patient occasionally has tingling sensation in the left ankle but denies any weakness in lower extremities, change in the bladder or bowel function. Patient reports intermittent left groin pain after walking long distance. She denies any pain at rest. [facility] Medical History (Updated 12/09/24 @ 13:34 by Taylor Mancilla MD) Tobacco dependence HTN (hypertension) Hyperlipidemia Annual physical exam Normal breast exam Hypothyroidism (~05/16/21) Surgical History Hx of unilateral oophorectomy H/O thyroidectomy Hx of colonoscopy Family History Mother CHF (congestive heart failure) Social History Household Members Other:: , no children, Housing: House Patient Tobacco Use Status: Current everyday Tobacco user Cigarettes Per Day: 13 e-Cigarette/Vaping Use: Never Used service: No Current occupational status: retired Cognitive needs: No Hearing needs: No Vision needs: Yes Questionnaire Thrive Questionnaire Date Thrive assessed: 02/21/24 I am a: Patient What is your living situation today?: I have a steady place to live Within the past 12 months, did the food you bought not last and you didn't have the money to get more?: Never true Within the past 12 months, did you worry whether your food would run out before you got money to buy more?: Never true Do you have trouble paying for medicines?: No Do you have trouble getting transportation to medical appointments?: No Do you have trouble paying your heating and electricity bill?: No Do you have trouble taking care of your child, family member or friend?: No Do you have trouble with day-to-day activities such as bathing, preparing meals, shopping, managing finances, etc.?: No Are you currently unemployed and looking for a job?: No Are you interested in more education?: No Please select the resources that you would like help with: None Currently or been in a relationship where the following occur: No concerns reported THRIVE Score: 0 MIR-7 AMB Questionnaire MIR-7 Date MIR - 7 assessed: 02/21/24 Source: Developed by Drs. Severo Rodriguez, Vilma Yeung, Huseyin Hassan and colleagues, with an educational castillo from [employer]. Review of Systems Const All systems reviewed & are unremarkable except as noted in HPI and below Eyes Reports no additional complaints ENT Reports no additional complaints Card Reports no additional complaints Resp Reports no additional complaints GI Reports no additional complaints Reports no additional complaints Physical exam (Primary Care) Vital Signs: Last Vital Signs Temp 97.5 F 12/09/24 11:56 Pulse 87 12/09/24 11:56 Resp 16 12/09/24 11:56 BP 158/82 H 12/09/24 11:56 Pulse Ox 97 12/09/24 11:56 Oxygen Delivery Method Room Air 12/09/24 11:56 BMI result Body Mass Index 27.2 Tobacco/Smoking Status: Tobacco use Status Tobacco use date assessed 12/09/24 12/09/24 12:10 Patient Tobacco Use Status Current everyday Tobacco 12/09/24 11:57 e-Cigarette/Vaping Use Never Used 12/09/24 11:57 Thrive Assessment: Date of Thrive Assessment Date Thrive assessed 02/21/24 12/09/24 11:57 Currently or been in a relationship where the following occur: No concerns reported Const General: no acute distress HENMT Head: Yes normal to inspection Ears: TM's normal bilaterally Mouth: Normal oral and palatal mucosa present Eyes General: appearance normal, both eyes and all related structures Neck Neck: Yes no lymphadenopathy and Yes supple Resp Effort & Inspection: normal respiratory effort Auscultation: clear to auscultation bilaterally Cardio Rhythm: regular rhythm Heart sounds: S1 normal heart sound present and S2 normal heart sound present GI Inspection: Yes normal to inspection Palpation (GI): Soft to palpation Percussion: Yes normal to percussion Auscultation: normal bowel sounds Back/Spine/Pelvis Other: Paraspinal tenderness in the lower lumbar region. Straight leg rising 90 degrees bilaterally. There is a decreased range of motion in the left hip, intact heel to toe walk bilaterally, deep tendon reflexes 1+ bilaterally Coding Level of Care Code Est Pt Prev Care >65y(11478) Diagnoses Sciatica M54.30 Hypertension, unspecified type I10 Hypertension type: unspecified Hyperlipidemia E78.5 Hypothyroidism E03.9 Hx of colonoscopy Z98.890 Annual physical exam Z00.00 Tobacco dependence F17.200 Assessment & Plan Assessment & Plan (1) Sciatica: Code(s): M54.30 - Sciatica, unspecified side Category: Medical Plan: For chronic sciatica obtain x-ray of lumbar spine and left hip. Lifestyle modifications and core muscles exercises discussed with the patient. She declined referral to physical therapy (2) HTN (hypertension): Comment: Patient refused to increase the dose of amlodipine, she states her blood pressure is normal at home Code(s): I10 - Essential (primary) hypertension Category: Medical Qualifiers: Hypertension type: unspecified Qualified Code(s): I10 - Essential (primary) hypertension Plan: Patient refuses to increase the dose of amlodipine. She has been monitoring her blood pressure at home and reports normal readings. (3) Hyperlipidemia: Comment: Patient declined taking statins, Code(s): E78.5 - Hyperlipidemia, unspecified Category: Medical Plan: Continue low-cholesterol diet. Patient refuses to take medication for hyperlipidemia. Pt is aware of risks of untreared hyperlipid including NH, CVA, (4) Hypothyroidism: Onset Date: ~05/16/21 Code(s): E03.9 - Hypothyroidism, unspecified Category: Medical Plan: Continue levothyroxine (5) Hx of colonoscopy: Comment: 2020 negative, repeat 10 years Code(s): Z98.890 - Other specified postprocedural states Category: Surgical Plan: Follow-up with GI (6) Annual physical exam: Comment: Patient declined DEXA Code(s): Z00.00 - Encounter for general adult medical examination without abnormal findings Category: Medical Plan: Well-balanced diet regular physical activity discussed with the patient she is up-to-date with the mammogram and declined DEXA (7) Tobacco dependence: Comment: 1/2 PPD for 20+ yrs, Not interested in quitting, in lung ca screening [place]ia Code(s): F17.200 - Nicotine dependence, unspecified, uncomplicated Category: Medical Plan: Tobacco quitting discussed with the patient Orders: Orders XR lumbar spine 2-3V Today M54.30 - Sciatica, unspecified side XR hip LT min 2V Today M54.30 - Sciatica, unspecified side Complete Blood Count Auto Diff 1 Year E03.9 - Hypothyroidism, unspecified, E55.9 - Vitamin D deficiency, unspecified, E78.5 - Hyperlipidemia, unspecified, I10 - Essential (primary) hypertension, Z00.00 - Encounter for general adult medical examination without abnormal findings Lipid Panel 1 Year E03.9 - Hypothyroidism, unspecified, E55.9 - Vitamin D deficiency, unspecified, E78.5 - Hyperlipidemia, unspecified, I10 - Essential (primary) hypertension, Z00.00 - Encounter for general adult medical examination without abnormal findings Vitamin D 25-OH Total 1 Year E03.9 - Hypothyroidism, unspecified, E55.9 - Vitamin D deficiency, unspecified, E78.5 - Hyperlipidemia, unspecified, I10 - Essential (primary) hypertension, Z00.00 - Encounter for general adult medical examination without abnormal findings Comprehensive [place]. Panel Fast 1 Year E03.9 - Hypothyroidism, unspecified, E55.9 - Vitamin D deficiency, unspecified, E78.5 - Hyperlipidemia, unspecified, I10 - Essential (primary) hypertension, Z00.00 - Encounter for general adult medical examination without abnormal findings TSH reflex Free T4 1 Year E03.9 - Hypothyroidism, unspecified, E55.9 - Vitamin D deficiency, unspecified, E78.5 - Hyperlipidemia, unspecified, I10 - Essential (primary) hypertension, Z00.00 - Encounter for general adult medical examination without abnormal findings
[2024-12-09 13:23] VITALS: BP 138/88
--- OUTSIDE RECORDS SUMMARY | 2024-12-09 15:20 | XMS_ITS | Clinical Summary ---
Author Organization [address] Address [address] [place] [address] Phone Care Team Providers Care Property Handler Name Role Phone Juancho Fan NP Primary Care Provider [phone] Surgical History Surgery Date Site/Laterality Comments OTHER SURGICAL HISTORY PROCEDURE: [place] THYROIDECTOMY TOTAL/COMPLETE; COMMENT: Per PCP Note H/O COLONOSCOPY N/A PROCEDURE: HISTORICAL COLONOSCOPY; COMMENT: Per pcpc history of Colonoscopy OOPHORECTOMY PROCEDURE: [place] OOPHORECTOMY PARTIAL/TOTAL UNI/BI; COMMENT: Per PCP Notes history of Medical History Medical History Date Comments Mixed hyperlipidemia DX:Mixed hy perlipidemia Hypothyroidism 05/16/2021 DX:Hypothyroidis m Normal breast exam DX:Normal trae ast exam Family History Medical History Relation Name Comments Heart failure Mother Relation Name Status Comments Mother Social History Tobacco Use Types Packs/Day Years Used Date Smoking Tobacco: Every Day Cigarettes 0.5 50.8 Started: [birth year]/13/1974 Comments Unknown Sex and Gender Information Value Date Recorded Sex Assigned at Female 05/17/2024 10:05 AM EDT Legal Sex Female 11:51 PM EST Gender Identity Female 05/17/2024 10:05 AM EDT Sexual Orientation Not on file Obstetrics History Plan of Treatment Health Maintenance Due Date Last Done Comments Breast Cancer Screening 1955 Colorectal Cancer Screening: Colonoscopy 1955 DTaP,Tdap,and Td Vaccines (1 - Tdap) 1974 Falls Risk Assessment 01/16/2022 Hepatitis C Screening 01/16/2022 Medicare Annual Wellness Visit 01/16/2022 Osteoporosis Screening (Bone Density Screening) 01/16/2022 Social Influencers of Health Screening 01/16/2022 Depression Screening 02/14/2024 COVID-19 Vaccine (2024-2 6 season) 2024 07/06/2020, 06/08/2020 Influenza Vaccine (#1) 2024 , 01/06/2023, 01/18/2021 RSV Immunization Adult Patients (1 - 1-dose 75+ series) 2030 Zoster Vaccines Completed 03/03/2020, 12/06/2019 Pneumococcal Vaccine: 50+ Years Completed 12/02/2021 HIB Vaccines Aged Out No longer eligi [...] on patient's age to complete this topic Insurance BLUE CROSS - [place] MEDICARE ADVANTAGE Care Teams Property Handler Relationship Specialty Start Date End Date Juancho Fan NP [address] [place] [address] PCP - General 11/11/10
== END 2024-12-09 12:53 | disposition home or self-care (01) ==
LOC: HO.HMCC 11:54
PROVIDERS: PCP Internal Medicine; Visit Provider Internal Medicine
DX: Z00.00 Encounter for general adult medical examination without abnormal findings (principal); M54.30 Sciatica, unspecified side; I10 Essential (primary) hypertension; E78.5 Hyperlipidemia, unspecified; E03.9 Hypothyroidism, unspecified; Z98.890 Other specified postprocedural states; F17.200 Nicotine dependence, unspecified, uncomplicated

== ENCOUNTER → 2024-12-09 11:53 | Outpatient (BNVA) | payer MEDICARE, SELFPAY | PROVIDERS: PCP Internal Medicine; Visit Provider Internal Medicine | DX: Z00.00 Encounter for general adult medical examination without abnormal findings (principal); M54.30 Sciatica, unspecified side; I10 Essential (primary) hypertension; E78.5 Hyperlipidemia, unspecified; E03.9 Hypothyroidism, unspecified; F17.210 Nicotine dependence, cigarettes, uncomplicated; Z98.890 Other specified postprocedural states | CPT/HCPCS: 99397 ==